=== PATIENT | male | born 1950 | race Caucasian/White ===

== ENCOUNTER 2020-02-22 14:30 | Inpatient (IN) ==
--- NOTE | 2020-02-22 15:36 | XRay Report ---
XR chest 1V portable CLINICAL HISTORY: psych clearance COMPARISON STUDY: No previous studies for comparison. FINDINGS: The cardiac and mediastinal contours are normal. There is no evidence of focal pulmonary co nsolidation. There is no evidence of failure. No pleural effusions are visualized.[The chest has an e mphysematous configuration. IMPRESSION: No active disease in the chest. ACT 112: Negative or not required by law. Electronically signed by: Toby Rodrigues M.D. 02/22/2020 3:34 PM
--- NOTE | 2020-02-22 15:39 | Emergency Department Note ---
Impression & Plan Mood disorder, Suicidal ideation ED Provider Note INFORMANT: Patient ED PROVIDER(S): Magen Wood MD CHIEF COMPLAINT: Mental health evaluation PLAN: Disposition: Admit to 3 S. Condition: Good Outpatient prescription management: none Referral: PCP after discharge. MEDICAL DECISION MAKING: Patient presented for medical clearance due to psychiatric complaints. He had a negative head CT. His ECG showed a normal sinus rhythm. His CBC showed a mild anemia but no leukocytosis. The remainder of his labs were negative. The patient's urinalysis did show marijuana. He was given oral Ativan. Patient rested comfortably. Case management met with the patient. Unfortunately his sp ot at the [facility] was no longer available but the patient was evaluated by [facility] S. here. He was accepted for voluntary admission. Triage Nursing notes reviewed and agree them. Additional history obtained from patient's daughter Vital Signs: reviewed and remarkable for no significant abnormalities Differential diagnosis: Mood disorder, infection, hypoglycemia, electrolyte abnormalities, cardiac sources, intracerebral event, toxicologic, trauma, neurologic, as well as other pathologies. Diagnostics interpreted by me: ECG: Twelve-lead ECG reveals normal sinus rhythm at [address] elevation depression, PACs or PVCs. Normal axis and QRS. Cardiac Monitoring: none Imaging studies: Chest x-ray. Findings: A chest x-ray was performed and revealed no pneumothorax, effusion, infiltrate, pulmonary edema, free air under the diaphragm, or wide mediastinum. Impression: No acute disease. Head CT: A noncontrast CT scan of the head was performed and was negative for tumor, fracture, intracranial hemorrhage, or other acute pathology. HPI: The patient is a 69 year old male who presents to the Emergency Room with complaints of mental health evaluation. This started 40 years ago and is worsening over the last several weeks per family. The patient also notes the f ollowing associated symptoms, depression, anxiety, vague suicidal ideation, occasional headaches, no energy or initiative. Daughter notes that he has been noticeably more irritable, very depressed and not getting along with his . Patient states that he has not gotten along with his for decades. They contacted the [facility] for more help with this and he was directed to the ER for medical clearance. He recently had a jaw infection and was treated with IV antibiotics. He is currently taking oral antibiotics. He does not feel it is getting any worse. His mood was sour before the jaw infection. The patient has found no relieving factors. Pt denies LOC, fevers, chills, diaphoresis, visual changes, neck pain, chest pain, breathing difficulties, nausea, vomiting, abdominal pain, back pain, melena, hematochezia, urinary symptoms, numbness, weakness, lymphadenopathy, rash, or other complaints. ROS: See above HPI for pertinent positives & negatives. A total of 10 systems reviewed and were otherwise negative. PAST MEDICAL HISTORY:See Below , throat cancer PAST SURGICAL HISTORY:See Below, oral surgery FAMILY HISTORY:See Below SOCIAL HISTORY:See Below, former smoker HOME MEDICATIONS:See Below ALLERGIES:See Below VITALS:See Below PHYSICAL EXAMINATION: GENERAL: Awake, alert, depressed-appearing, in no distress HENT: Normocephalic, atraumatic. Oropharynx unremarkable. EYES: Normal conjunctiva. Sclera non-icteric. NECK: Inspection normal. Non-tender. Supple. No nuchal rigidity. FROM. No masses. RESPIRATORY: Clear to auscultation. No wheezes. No rales. Normal respiratory effort. CARDIAC: Normal rate. Normal rhythm. No murmurs. No rubs. Extremities warm and well perfused. Pulses equal. No JVD. GI: Soft, non-distended. No tenderness to palpation. No rebound or guarding. No masses. RECTAL: Deferred. MUSCULOSKELETAL: Atraumatic. Chest examination reveals no tenderness. The back is symmetrical on inspection without obvious abnormality. There is no CVA tenderness to palpation. No joint edema. LOWER EXTREMITIES: Calves are equal size bilaterally and non-tender. No edema. No discoloration. NEURO: Normal sensorium. No sensory or motor deficits noted. Mild tremor present. SKIN: No rash or jaundice noted. PSYCH: Poor eye contact. Depressed mood. Flat affect. Vague SI. No HI. No delusions. Magen Wood MD Past Med/Surg History Social History Smoking Status: Former smoker Preferred Language: Nepali Communication Ability: Effective Miter Sawyer Required: No Beliefs That Will Affect Care: None Feels Safe at Home: Yes Assistive Devices: Glasses Allergies Allergies Allergy/AdvReac Type Severity Reaction Status Date / Time fentanyl Allergy Unresponsiv Verified 02/22/20 14:55 e Home Meds Home Medications Medication Instructions Recorded Confirmed aspirin 81 mg PO DAILY 02/22/20 02/22/20 clindamycin HCl 300 mg PO Q6H 02/22/20 02/22/20 vitamins A,C,[id number] 1 tab PO DAILY 02/22/20 02/22/20 [PreserVision AREDS] Results & Data (ED) Vital Signs Vital Signs - 24 hr 02/22/20 14:31 02/22/20 19:28 Temperature 36.1 C L Temperature Source Temporal Artery Scan Pulse Rate 96 H Pulse Rate [Right Finger] 60 Respiratory Rate 20 19 Respiratory Depth Normal Blood Pressure 179/100 H Blood Pressure [Right Arm] 126/78 Blood Pressure Mean 126 Blood Pressure Mean [Right Arm] 94 Pulse Oximetry 97 96 Oxygen Delivery Method Room Air Sepsis Recent Fever Within 48 Hours No Sepsis New/Unexplained Change in Mental Status N/A Sepsis Action Taken by Nursing No Action Required Laboratory Data Result diagrams: 02/22/20 15:31 02/22/20 15:31 Lab Results 02/22/20 02/22/20 02/22/20 Range/Units 15:31 15:31 15:31 WBC 6.16 (4.8-10.8) K/uL RBC 3.65 L (4.7-6.1) M/uL Hgb 12.0 L (14.0-18.0) g/dL Hct 36.4 L (42-52) % MCV 99.7 (80-100) fL MCH 32.9 (25-34) pg MCHC 33.0 (32-36) g/dL RDW Std Deviation 49.6 H (36.4-46.3) fL RDW Coeff of Debbie 13.8 (11.5-14.5) % Plt Count 247 (130-400) K/uL MPV 9.1 (7.4-10.4) fL Immature Gran % (Auto) 0.2 % Neut % (Auto) 85.4 % Lymph % (Auto) 11.2 % [place] % (Auto) 1.9 % Eos % (Auto) 1.0 % Baso % (Auto) 0.3 % Neut # (Auto) 5.26 (1.4-6.5) K/uL Lymph # (Auto) 0.69 L (1.2-3.4) K/uL [place] # (Auto) 0.12 (0.11-0.59) K/uL Eos # (Auto) 0.06 (0-0.5) K/uL Baso # (Auto) 0.02 (0-0.2) K/uL Immature Gran # (Auto) 0.01 (0.00-0.02) K/uL Sodium 138 (136-145) mmol/L Potassium 4.2 (3.5-5.1) mmol/L Chloride 104 (98-107) mmol/L Carbon Dioxide 27 (21-32) mmol/L Anion Gap 8.0 (3-11) BUN 22 H (7-18) mg/dl Creatinine 1.22 (0.6-1.4) mg/dl Est Cr Clr Drug Dosing 48.9 ml/min Est GFR ( Amer) 68.7 Est GFR (Non-Af Amer) 59.3 BUN/Creatinine Ratio 18.4 (10-20) Glucose 88 (70-99) mg/dl Calcium 9.7 (8.5-10.1) mg/dl Total Bilirubin 0.5 (0.2-1) mg/dl AST 21 (15-37) U/L ALT 18 (12-78) U/L Alkaline Phosphatase 60 (45-117) U/L Total Protein 7.6 (6.4-8.2) gm/dl Albumin 4.1 (3.4-5.0) gm/dl Globulin 3.5 (2.5-4.0) gm/dl Albumin/Globulin Ratio 1.2 (0.9-2) TSH 4.220 (0.300-4.500) uIu/ml Urine Color Urine Appearance (Clear) Urine pH (4.5-7.5) Ur Specific [place] (1.000-1.030) Urine Protein (Negative) Urine Glucose (UA) (Negative) Urine Ketones (Negative) Urine Blood (Negative) Urine Nitrite (Negative) Urine Bilirubin (Negative) Urine Urobilinogen (Negative) Ur Leukocyte Esterase (Negative) Urine WBC (Auto) (0-5) /hpf Urine RBC (Auto) (0-4) /hpf U Hyaline Cast (Auto) (0-5) /lpf U Epithel Cells (Auto) (0-5) /lpf Urine Bacteria (Auto) (Negative) Salicylates < 1.7 L (2.8-20) mg/dl Urine Opiates Screen (Neg) Ur Methadone, Qual (Neg) Acetaminophen < 2 L (10-30) ug/ml Urine Barbiturates (Neg) Ur Phencyclidine (PCP) (Neg) U Amphetamin/Meth Scrn (Neg) MDMA (Ecstasy) Screen (Neg) U Benzodiazepines Scrn (Neg) Ur Cocaine Metabolite (Neg) U Marijuana (THC) Screen (Neg) Ethyl Alcohol mg/dL (0-3) mg/dl COVID-19 Eval Order SARS-CoV-2, RNA, NAAT (NEGATIVE) 02/22/20 02/22/20 02/22/20 Range/Units 15:31 15:40 15:40 WBC (4.8-10.8) K/uL RBC (4.7-6.1) M/uL Hgb (14.0-18.0) g/dL Hct (42-52) % MCV (80-100) fL MCH (25-34) pg MCHC (32-36) g/dL RDW Std Deviation (36.4-46.3) fL RDW Coeff of Debbie (11.5-14.5) % Plt Count (130-400) K/uL MPV (7.4-10.4) fL Immature Gran % (Auto) % Neut % (Auto) % Lymph % (Auto) % [place] % (Auto) % Eos % (Auto) % Baso % (Auto) % Neut # (Auto) (1.4-6.5) K/uL Lymph # (Auto) (1.2-3.4) K/uL [place] # (Auto) (0.11-0.59) K/uL Eos # (Auto) (0-0.5) K/uL Baso # (Auto) (0-0.2) K/uL Immature Gran # (Auto) (0.00-0.02) K/uL Sodium (136-145) mmol/L Potassium (3.5-5.1) mmol/L Chloride (98-107) mmol/L Carbon Dioxide (21-32) mmol/L Anion Gap (3-11) BUN (7-18) mg/dl Creatinine (0.6-1.4) mg/dl Est Cr Clr Drug Dosing ml/min Est GFR ( Amer) Est GFR (Non-Af Amer) BUN/Creatinine Ratio (10-20) Glucose (70-99) mg/dl Calcium (8.5-10.1) mg/dl Total Bilirubin (0.2-1) mg/dl AST (15-37) U/L ALT (12-78) U/L Alkaline Phosphatase (45-117) U/L Total Protein (6.4-8.2) gm/dl Albumin (3.4-5.0) gm/dl Globulin (2.5-4.0) gm/dl Albumin/Globulin Ratio (0.9-2) TSH (0.300-4.500) uIu/ml Urine Color Urine Appearance (Clear) Urine pH (4.5-7.5) Ur Specific [place] (1.000-1.030) Urine Protein (Negative) Urine Glucose (UA) (Negative) Urine Ketones (Negative) Urine Blood (Negative) Urine Nitrite (Negative) Urine Bilirubin (Negative) Urine Urobilinogen (Negative) Ur Leukocyte Esterase (Negative) Urine WBC (Auto) (0-5) /hpf Urine RBC (Auto) (0-4) /hpf U Hyaline Cast (Auto) (0-5) /lpf U Epithel Cells (Auto) (0-5) /lpf Urine Bacteria (Auto) (Negative) Salicylates (2.8-20) mg/dl Urine Opiates Screen (Neg) Ur Methadone, Qual (Neg) Acetaminophen (10-30) ug/ml Urine Barbiturates (Neg) Ur Phencyclidine (PCP) (Neg) U Amphetamin/Meth Scrn (Neg) MDMA (Ecstasy) Screen (Neg) U Benzodiazepines Scrn (Neg) Ur Cocaine Metabolite (Neg) U Marijuana (THC) Screen (Neg) Ethyl Alcohol mg/dL < 3.0 (0-3) mg/dl COVID-19 Eval [email or web address] SARS-CoV-2, RNA, NAAT NEGATIVE (NEGATIVE) 02/22/20 02/22/20 Range/Units 15:50 15:50 WBC (4.8-10.8) K/uL RBC (4.7-6.1) M/uL Hgb (14.0-18.0) g/dL Hct (42-52) % MCV (80-100) fL MCH (25-34) pg MCHC (32-36) g/dL RDW Std Deviation (36.4-46.3) fL RDW Coeff of Debbie (11.5-14.5) % Plt Count (130-400) K/uL MPV (7.4-10.4) fL Immature Gran % (Auto) % Neut % (Auto) % Lymph % (Auto) % [place] % (Auto) % Eos % (Auto) % Baso % (Auto) % Neut # (Auto) (1.4-6.5) K/uL Lymph # (Auto) (1.2-3.4) K/uL [place] # (Auto) (0.11-0.59) K/uL Eos # (Auto) (0-0.5) K/uL Baso # (Auto) (0-0.2) K/uL Immature Gran # (Auto) (0.00-0.02) K/uL Sodium (136-145) mmol/L Potassium (3.5-5.1) mmol/L Chloride (98-107) mmol/L Carbon Dioxide (21-32) mmol/L Anion Gap (3-11) BUN (7-18) mg/dl Creatinine (0.6-1.4) mg/dl Est Cr Clr Drug Dosing ml/min Est GFR ( Amer) Est GFR (Non-Af Amer) BUN/Creatinine Ratio (10-20) Glucose (70-99) mg/dl Calcium (8.5-10.1) mg/dl Total Bilirubin (0.2-1) mg/dl AST (15-37) U/L ALT (12-78) U/L Alkaline Phosphatase (45-117) U/L Total Protein (6.4-8.2) gm/dl Albumin (3.4-5.0) gm/dl Globulin (2.5-4.0) gm/dl Albumin/Globulin Ratio (0.9-2) TSH (0.300-4.500) uIu/ml Urine Color Yellow Urine Appearance Clear (Clear) Urine pH 5.0 (4.5-7.5) Ur Specific [place] 1.020 (1.000-1.030) Urine Protein Trace H (Negative) Urine Glucose (UA) Negative (Negative) Urine Ketones Trace H (Negative) Urine Blood Negative (Negative) Urine Nitrite Negative (Negative) Urine Bilirubin Negative (Negative) Urine Urobilinogen Negative (Negative) Ur Leukocyte Esterase Negative (Negative) Urine WBC (Auto) 1-5 (0-5) /hpf Urine RBC (Auto) 0-4 (0-4) /hpf U Hyaline Cast (Auto) 1-5 (0-5) /lpf U Epithel Cells (Auto) 10-20 H (0-5) /lpf Urine Bacteria (Auto) Negative (Negative) Salicylates (2.8-20) mg/dl Urine Opiates Screen Neg (Neg) Ur Methadone, Qual Neg (Neg) Acetaminophen (10-30) ug/ml Urine Barbiturates Neg (Neg) Ur Phencyclidine (PCP) Neg (Neg) U Amphetamin/Meth Scrn Neg (Neg) MDMA (Ecstasy) Screen Neg (Neg) U Benzodiazepines Scrn Neg (Neg) Ur Cocaine Metabolite Neg (Neg) U Marijuana (THC) Screen Pos H (Neg) Ethyl Alcohol mg/dL (0-3) mg/dl COVID-19 Eval Order SARS-CoV-2, RNA, NAAT (NEGATIVE) Administered Medications Discontinued Medications Lorazepam (Lorazepam 1 Mg Tab) 1 mg SL NOW STA Stop: 02/22/20 16:27 Last Admin: 02/22/20 16:37 Dose: 1 mg Documented by: [id number] Discharge Plan Visit Data Chief Complaint: Mental Health Evaluation Stated Complaint: MENTAL HEALTH EVAL ED Provider: Magen Wood Discharge Problem: Mood disorder, Suicidal ideation Patient Disposition: Admitted As Inpatient Discharge Instructions Interventions: ED Discharge Assessment Last Done: 02/22/20 19:55
[2020-02-22 16:05] LABS: Basophils # (auto) 0.02 K/uL (0-0.2); Basophils % (auto) 0.3 %; Eosinophils # (auto) 0.06 K/uL (0-0.5); Hematocrit (blood only) 36.4 % (42-52); Immature Granulocytes # (auto) 0.01 K/uL (0.00-0.02); Immature Granulocytes % (auto) 0.2 %; Lymphocytes # (auto) 0.69 K/uL (1.2-3.4); Lymphocytes % (auto) 11.2 %; Mean Corpuscular Hemoglobin 32.9 pg (25-34); Mean Corpuscular Volume 99.7 fL (80-100); Mean Platelet Volume 9.1 fL (7.4-10.4); Monocytes # (auto) 0.12 K/uL (0.11-0.59); Monocytes % (auto) 1.9 %; Neutrophils # (auto) 5.26 K/uL (1.4-6.5); Neutrophils % (auto) 85.4 %; Platelet Count 247 K/uL (130-400); RDW Coefficient of Variation 13.8 % (11.5-14.5); RDW Standard Deviation 49.6 fL (36.4-46.3); Red Blood Count 3.65 M/uL (4.7-6.1); White Blood Count 6.16 K/uL (4.8-10.8)
--- NOTE | 2020-02-22 16:10 | CT Scan Report ---
CT head/brain wo con CLINICAL HISTORY: mood change CHANGE IN MENTAL STATUS COMPARISON STUDY: No previous studies for comparison. TECHNIQUE: Axial CT of the brain is performed from the vertex to the skull base. IV contrast was not administered for this examination. A dose lowering technique was utilized adhering to the principles of ALARA. CT DOSE: 537.48 mGy.cm FINDINGS: No intra or extra-axial mass lesions are visualized. There is no CT evidence of acute cortical infarc tion. There is no evidence of midline shift. There is no acute hemorrhage. No calvarial fractures ar e visualized. There are minor white matter hypodensities likely on a small vessel basis. There is no evidence of pathologic ventricular dilatation. There is no evidence of acute sinusitis IMPRESSION: No acute intracranial findings ACT 112: Negative or not required by law. Electronically signed by: Toby Rodrigues M.D. 02/22/2020 4:09 PM
[2020-02-22 16:11] LABS: Appearance Urine Clear (Clear); Bacteria Urine Automated Negative (Negative); Bilirubin Urine Negative (Negative); Blood Urine Negative (Negative); Color Urine Yellow; Glucose Urine UA Negative (Negative); Ketones Urine Trace (Negative); Leukocyte Esterase Urine Negative (Negative); Nitrite Urine Negative (Negative); Protein Urine Trace (Negative); RBC Urine Automated 0-4 /hpf (0-4); Urobilinogen Urine Negative (Negative)
[2020-02-22 16:22] LABS: Albumin Level 4.1 gm/dl (3.4-5.0); BUN Creatinine Ratio 18.4 (10-20); Calcium 9.7 mg/dl (8.5-10.1); Creatinine Clr Calc Pharmacy 48.9 ml/min; Est GFR (African American) 68.7; Est GFR (Non-African American) 59.3; Potassium 4.2 mmol/L (3.5-5.1)
[2020-02-22] MEDS ORDERED: LORazepam 1 MG TAB SL STA (16:26)
[2020-02-22 16:31] LABS: Acetaminophen < 2 ug/ml (10-30); Salicylate < 1.7 mg/dl (2.8-20)
[2020-02-22 16:31] LABS: Amphetamines+Metham, Urine Neg (Neg); Barbiturates, Urine Neg (Neg); Benzodiazepine, Urine Neg (Neg); Cocaine, Urine Neg (Neg); MDMA (Ecstacy), Urine Neg (Neg); Methadone, Urine Neg (Neg); Opiate, Urine Neg (Neg); Phencyclidine, Urine Neg (Neg)
[2020-02-22 16:33] LABS: Albumin Globulin Ratio 1.2 (0.9-2); Bilirubin,Total 0.5 mg/dl (0.2-1); Globulin 3.5 gm/dl (2.5-4.0); Thyroid Stimulating Hormone 4.22 uIu/ml (0.300-4.500); Total Protein 7.6 gm/dl (6.4-8.2)
[2020-02-22] MEDS ORDERED: BISMUTH SUBSALICYLATE LIQD 236 ML PO PRN (20:13)
[2020-02-22] MEDS ORDERED: ALUMINUM/MAGNESIUM SUSP 30 ML UDC PO PRN (20:13)
[2020-02-22] MEDS ORDERED: ACETAMINOPHEN 325 MG TAB PO PRN (20:13)
[2020-02-22] MEDS ORDERED: MAGNESIUM HYDROXIDE SUSP 30 ML UDC PO PRN (20:13)
[2020-02-22] MEDS ORDERED: hydrOXYzine HCl 25 MG TAB PO PRN ×2 (20:13)
[2020-02-22] MEDS ORDERED: SODIUM CHLORIDE 0.65% NA SOLN 45 ML (OCEAN) PRN (20:13)
[2020-02-23] MEDS: CLINDAMYCIN HCL 150 MG CAP PO SCH ×4 (00:11→18:51)
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
[2020-02-23] MEDS: ASPIRIN 81 MG ECTAB PO SCH (08:50)
[2020-02-23] MEDS ORDERED: MULTIVITAMIN CHEWABLE TAB PO SCH (09:00)
--- NOTE | 2020-02-23 09:38 | Electrocardiogram Report ---
Test Reason : Blood Pressure : / mmHG Vent. Rate : 080 BPM Atrial Rate : 080 BPM P-R Int : 160 ms QRS Dur : 086 ms QT Int : 384 ms P-R-T Axes : 076 073 072 degrees QTc Int : 442 ms Poor data quality, interpretation may be adversely affected Normal sinus rhythm Normal ECG No previous ECGs available Confirmed by Bennett Amin ([id number]) on 02/23/2020 9:38:07 AM Referred By: REFERRED SELF Confirmed By:Bennett Amin
[2020-02-23] MEDS ORDERED: IBUPROFEN 600 MG TAB PO PRN (09:46)
[2020-02-23] MEDS ORDERED: PRESERVISION AREDS2 EXT SCH (10:30)
[2020-02-24] MEDS ORDERED: CEROVITE ADV FORMULA TAB PO SCH (09:00)
[2020-02-24] MEDS: ASPIRIN 81 MG ECTAB PO SCH (09:00)
[2020-02-24] MEDS: PRESERVISION AREDS2 PO SCH (09:00)
--- NOTE | 2020-02-24 09:40 | Psychiatric Progress Note ---
Date of Service February 24, 2020 Impression / Recommendations (1) Suicidal ideation: 02/22 -continue inpatient hospitalization, suicide checks for safety. Encourage group attendance and participation, work on healthy coping skills and discharge safety plan. -Patient is refusing to allow us to contact his for collateral information, stating he does not want her involved in treatment and does not want to go back and live with her. We will explore other supports/options for family meeting and safety planning, possibly his daughter Keerthi who brought him to the ER. 02/23 - Pt denies SI - Will be encouraged to work on his safety plan - Focus at this time is on appropriate medications and aftercare to promote stability of mood (2) Bipolar 1 disorder: 02/22 -patient reports a history of manic episodes lasting 2 weeks, previous treatment with lithium and Depakote which she is refusing to resume, currently depressed with significant irritability. Reviewed treatment options, including a trial of lamotrigine or an atypical antipsychotic. He is very concerned about side effects, so reviewed lamotrigine in detail including risks, benefits, and side effects, including the need to titrate slowly following the standard protocol and the risk of Petersen-Wesley syndrome. At this time, he is not willing to start a medication, but is willing to about it, so will continue to provide information and answer questions about mood stabilizers. Advised him that medications are only 1 part of treatment, but that he may need them, given the severity of mood symptoms, in order to get out of his depression, stabilize mood, and be able to use other, nonpharmacologic methods of treatment. -Continue to provide psychoeducation about his diagnosis and the treatment recommendations. Refer for outpatient mental health services. -Education provided on the risks of cannabis use and recommendations for abstinence; patient states he has already decided to stop smoking pot due to his religion believes, and has not smoked in a week or so. Attempt to identify healthier coping strategies. 02/23 - After review of several mood stabilization medication options and patient's request to review with his daughter - the patient is ultimately willing to retry lithium for his bipolar disorder. Pt believes he may have been prescribed 600mg BID or TID in the past (though admittedly is uncertain about the accuracy of this report). He does recall GI upset in the past, but agreed to a less rapid titration to effective dosing. Will start at 300mg tonight and titrate as tolerated. Risks, benefits, and potential side effects were reviewed with both the patient and his daughter. Pt did verbalize understanding of need for lab monitoring to prevent toxicity. - Pt will require lithium trough to be drawn 5 days after her reaches stable dosing, lab not yet ordered - Pt did agree to consider lamotrigine if lithium was intolerable or ineffective. - He continues to deny SI, but would benefit from continued inpatient treatment to start an appropriate medication regimen and ensure he has appropriate outpatient services at discharge. - Family meeting with daughter, Keerthi, was held today Risk Factors Assessment Male: Yes : Yes Do You Have Access To A Gun?: No Health Problems: Yes Mental Health Diagnoses: Yes Substance Use Disorders: Yes Previous Attempt: Yes Previous Psychiatric Hospitalization: Yes Hopelessness: No Smoker: No Protective Factors Assessment [employer]aritan Beliefs: Yes : Yes Responsible for Young Children: No Employed: No Supportive Family: Yes Interval History Identifying Information GEOVANY MARIE is a 69-year-old M who currently lives in [facility]) with his , has a history of depression, and was admitted on 02/22/20 19:53 on a 201 voluntary commitment for worsening mood and suicidal ideation. Chief Complaint "Do you have my discharge papers prepared?" Review of Systems Notes Constitutional: denied Cardiovascular: denied Respiratory: denied Gastrointestinal: denied Neurological: denied Psychiatric: denies symptoms other than stated above Total of at least 10 systems reviewed, pertinent positives as above and in HPI. Sleep Information Total Hours of Sleep: 3.0 Sleep Comments: Patient said that he sleeps "three to four 15 min naps and that is all I need". Meal Information Percent Meal Consumed - Breakfast: 0 Percent Meal Consumed - Lunch: 0 Percent Meal Consumed - Dinner: 10 Subjective Subjective Patient was see & assessed and interval progress reviewed with nursing and social work. Staff report the patient continues to be rather animated, irritable, and resistant to engaging in treatment. He is preoccupied with discussing his religion beliefs, but also spends a great deal of time verbalizing complaints about his marriage and other home-life stressors. This morning the patient was reportedly very irritable when simply asked by staff if he would like to fill out his menu for the remainder of the day. The patient was seen today to assess progress since admission. He was initially rather short, demanding to know if his discharge papers were printed. This provider was very clear with informing the patient that discharge is not being considered for today. He states "oh, I'm leaving. One way or another I'll get out of here - even if I leave with just my glasses." This provider inquired what the patient felt has improved since his admission, and he admitted that very little had changed. He was able to provide honest reports that his primary reason for requesting discharge is related to shoulder discomfort - patient admitting that he has been using prescriptions for pain medications when his shoulder pain acts up. This provider informed patient of tasks necessary to work toward discharge planning. He was encouraged to consider a family meeting and also was asked to consider medication options that had been discussed with him previously. He again requested sertraline, and was provided with explanation as to why monotherapy with an antidepressant would not be started without having a mood stabilization agent on board. Pt continues to request only medications without side effects or need for lab monitoring. Lamotrigine was again suggested, with additional conversation regarding risk of SJS but also how prescribing practices work to reduce this risk. Pt request a print out on the medication which was provided to him. He repeatedly suggested that "you can add the prescription to my discharge papers today and I will see if I want to take it when I leave." This provider explained clear boundaries, that he would not be receiving any discharge prescriptions for medications he refused to take during his admission. Before leaving the patient's room, medication recommendations and justification of these was explained and patient information on lamotrigine was provided. Pt was encouraged to seek out staff if he should desire to initiate a mood stabilization agent. He denied suicidality or other concerns he wished to discuss. This provider received reports from staff that patient continues to be concerned about the risk of SJS and is now considering a re-trial of lithium. He did agree to a family meeting with his daughter, Keerthi. This provider was asked to join the meeting to discuss medication recommendations. Pt was very polite and articulate during the meeting and did not openly display any of the irritability observed earlier this morning. The medication options were reviewed with the patient and his daughter, with opportunity for questions to be answered. Daughter did verbalize concern about valproic acid due to patient's history of alcohol abuse and concern for the health of his liver. The patient openly advocated for lithium and daughter supported patient's decision. Pt agreed to starting the medication this evening and titrating to therapeutic dosing as tolerated. Due to concern for GI symptoms in the past, patient did indicate desire for gradual medication adjustments. The patient has now decided that he feels inpatient treatment would be beneficial and he is no longer requesting discharge today. This provider did exit the meeting, and the group continued to discuss options for aftercare. Pt and daughter were encouraged to pass along any additional questions or concerns. Physical Exam Psychiatric Orientation: alert and oriented x 3 Apperance: appropriately dressed and appropriately groomed Eye Contact: + fair eye contact Motor Behavior: no abnormal motor movements (observed while laying in bed initially ) Speech: normal rate/rhythm/volume of speech (initially irritable tone - tone was polite and cooperative during meeting) Affect: + labile affect affect was initially irritable and angry when meeting independently with the patient. During meeting with daughter, patient was polite, appearing subdued but not overtly depressed Thought Process: goal directed thought process and clear/coherent thought process Thought Content: reality based without delusions; no hopelessness and no worthlessness Suicidal Thoughts: denies suicidal thoughts and denies suicidal intent Homicidal Thoughts: denies homicidal thoughts Hallucinations: no auditory hallucinations and no visual hallucinations Cognition: attention grossly intact and language grossly intact Estimated Intelligence: consistent with education level Insight: + fair insight Judgement: + fair judgement Vital Signs (Past 24 Hours) Last Vital Signs Temp 36.6 C 02/24/20 06:42 Pulse 66 02/24/20 06:43 Resp 16 02/24/20 06:42 BP 90/57 L 02/24/20 06:43 Pulse Ox 96 02/22/20 20:22 Results & Data ([facility]) Current Inpatient Medications Current Inpatient Medications: Current Inpatient Medications Acetaminophen (Acetaminophen 325 Mg Tab) 650 mg PO Q4H PRN PRN Reason: Headache or Minor Fever Stop: 03/23/20 20:12 Al Hydrox/Mg Hydrox/Simethicone (Aluminum/Magnesium Susp 30 Ml Udc) 30 ml PO Q4H PRN PRN Reason: GI Upset Stop: 03/23/20 20:12 Aspirin (Aspirin 81 Mg Ectab) 81 mg PO QAM SANDEEP Stop: 03/24/20 08:59 Last Admin: 02/24/20 09:00 Dose: 81 mg Documented by: Bismuth Subsalicylate (Bismuth Subsalicylate Liqd 236 Ml) 15 ml PO PRN PRN PRN Reason: Loose Stool Stop: 03/23/20 20:12 Hydroxyzine HCl (Hydroxyzine Hcl 25 Mg Tab) 50 mg PO HSZ PRN PRN Reason: Insomnia Stop: 03/23/20 20:12 Hydroxyzine HCl (Hydroxyzine Hcl 25 Mg Tab) 25 mg PO Q4H PRN PRN Reason: Anxiety Stop: 03/23/20 20:12 Ibuprofen (Ibuprofen 600 Mg Tab) 600 mg PO Q8H PRN PRN Reason: Pain Stop: 03/24/20 09:45 Last Admin: 02/23/20 10:23 Dose: 600 mg Documented by: Magnesium Hydroxide (Magnesium Hydroxide Susp 30 Ml Udc) 30 ml PO DAILY PRN PRN Reason: Constipation Stop: 03/23/20 20:12 Preservision Areds2: Non-Formulary Patient's Own Med 1 ea PO DAILY SANDEEP Stop: 03/25/20 08:59 Last Admin: 02/24/20 09:00 Dose: 1 ea Documented by: Sodium Chloride (Sodium Chloride 0.65% Na Soln 45 Ml ([place])) 1 - 2 sprays NA PRN PRN PRN Reason: Nasal Dryness/Congestion Stop: 03/23/20 20:12 Mental Health & Subst Abuse Tx Therapist Name of Therapist: none Post Discharge Appointments Primary Care Physician Name Of Family Doctor: Elisa Ng [facility]
[2020-02-24] MEDS ORDERED: LITHIUM CARBONATE 300 MG TAB PO SCH (22:00)
[2020-02-25 00:26] LABS: Marijuana Quant, GCMS Urine 114 ng/mL (<5)
[2020-02-25] MEDS: PRESERVISION AREDS2 PO SCH (08:42)
[2020-02-25] MEDS: ASPIRIN 81 MG ECTAB PO SCH (08:43)
--- NOTE | 2020-02-25 09:08 | Psychiatric Progress Note ---
Date of Service February 25, 2020 Impression / Recommendations (1) Suicidal ideation: 02/22 -continue inpatient hospitalization, suicide checks for safety. Encourage group attendance and participation, work on healthy coping skills and discharge safety plan. -Patient is refusing to allow us to contact his for collateral information, stating he does not want her involved in treatment and does not want to go back and live with her. We will explore other supports/options for family meeting and safety planning, possibly his daughter Keerthi who brought him to the ER. 02/23 - 02/24 - Pt denies SI - Will be encouraged to work on his safety plan - Focus at this time is on appropriate medications and aftercare to promote stability of mood (2) Bipolar 1 disorder: 02/22 -patient reports a history of manic episodes lasting 2 weeks, previous treatment with lithium and Depakote which she is refusing to resume, currently depressed with significant irritability. Reviewed treatment options, including a trial of lamotrigine or an atypical antipsychotic. He is very concerned about side effects, so reviewed lamotrigine in detail including risks, benefits, and side effects, including the need to titrate slowly following the standard protocol and the risk of Petersen-Wesley syndrome. At this time, he is not willing to start a medication, but is willing to about it, so will continue to provide information and answer questions about mood stabilizers. Advised him that medications are only 1 part of treatment, but that he may need them, given the severity of mood symptoms, in order to get out of his depression, stabilize mood, and be able to use other, nonpharmacologic methods of treatment. -Continue to provide psychoeducation about his diagnosis and the treatment recommendations. Refer for outpatient mental health services. -Education provided on the risks of cannabis use and recommendations for abstinence; patient states he has already decided to stop smoking pot due to his presybeterian believes, and has not smoked in a week or so. Attempt to identify healthier coping strategies. 02/23 - After review of several mood stabilization medication options and patient's request to review with his daughter - the patient is ultimately willing to retry lithium for his bipolar disorder. Pt believes he may have been prescribed 600mg BID or TID in the past (though admittedly is uncertain about the accuracy of this report). He does recall GI upset in the past, but agreed to a less rapid titration to effective dosing. Will start at 300mg tonight and titrate as tolerated. Risks, benefits, and potential side effects were reviewed with both the patient and his daughter. Pt did verbalize understanding of need for lab monitoring to prevent toxicity. - Pt will require lithium trough to be drawn 5 days after her reaches stable dosing, lab not yet ordered - Pt did agree to consider lamotrigine if lithium was intolerable or ineffective. - He continues to deny SI, but would benefit from continued inpatient treatment to start an appropriate medication regimen and ensure he has appropriate outpatient services at discharge. - Family meeting with daughter, Keerthi, was held today 02/24 - Titrating lithium to 600mg qHS tonight. Will order lithium level to be drawn the morning of 03/01, though additional adjustments could be considered within that timeline. - Pt does request to discuss options to improve sleep and was agreeable with as needed use of melatonin. Pt was also reminded of order for hydroxyzine as well. - Pt perceives his meeting with his daughter was positive yesterday, he also states he had attempted to call his last evening and seems more amenable to working on their relationship. - Aftercare services will still need arranged Risk Factors Assessment Male: Yes : Yes Do You Have Access To A Gun?: No Health Problems: Yes Mental Health Diagnoses: Yes Substance Use Disorders: Yes Previous Attempt: Yes Previous Psychiatric Hospitalization: Yes Hopelessness: No Smoker: No Protective Factors Assessment Mandaeism Beliefs: Yes : Yes Responsible for Young Children: No Employed: No Supportive Family: Yes Interval History Identifying Information GEOVANY MARIE is a 69-year-old M who currently lives in [facility]) with his , has a history of depression, and was admitted on 02/22/20 19:53 on a 201 voluntary commitment for worsening mood and suicidal ideation. Chief Complaint "Um, I do feel I'm doing better." Review of Systems Notes Constitutional: reports poor sleep last evening Cardiovascular: denied Respiratory: denied Gastrointestinal: denied Neurological: denied Psychiatric: denies symptoms other than stated above Total of at least 10 systems reviewed, pertinent positives as above and in HPI. Sleep Information Total Hours of Sleep: 1.25 Sleep Comments: Patient said that he sleeps "three to four 15 min naps and that is all I need". Meal Information Percent Meal Consumed - Breakfast: 0 Percent Meal Consumed - Lunch: 100 Percent Meal Consumed - Dinner: 100 Subjective Subjective Patient was seen & assessed and interval progress reviewed with treatment team. Staff report the patient has demonstrated much less irritability since yesterday afternoon. He has started attending group therapy and even expressed to staff that he would like to explore marriage counseling. Pt rated his mood a 6/10 last evening. According to staff, patient also appeared to be less religiously preoccupied. Pt was seen today to assess progress since admission. The patient reports "I do feel I'm doing better." He states he was able to attend some groups last evening, and that a particular group on "goals" was helpful for him. He reports he has a goal of continuing with his medication regimen, but also to begin working on communication. We discussed effective communication also includes a significant component of listening, which he admits he struggles with. Pt does seem much more motivated to work on his marriage - suggesting to this provider several ways that he could express his emotions to his ("just spend more time with her", "buy her some conner when I'm at the store", "even just explaining that I'm committed to resolving issues, even when I need to step away for some space.") Pt states he is not sure of his 's thoughts on the matter, but he did attempt to call her last evening. Pt states that he daughter offered for him to stay in the house she is trying to sell if he does need some space to himself. He states he would also feel comfortable using the services at [facility] in [place] if needed - "that way I'm still close to my doctors appointments and not driving off to [place] when I'm upset." Pt continues to deny SI, and has been more agreeable with medication recommendations. He denied side effects to initial dose of lithium last evening and is agreeable to increasing his dose to 600mg tonight. Pt is admittedly concerned about potential side effects and is hoping to continue to focus on therapeutic interventions until his lithium level can be checked. He is also aware that aftercare services will still need to be arranged. Pt denied other needs at this time. Physical Exam Psychiatric Orientation: alert, oriented x 3 and cooperative Apperance: appropriately dressed, appropriately groomed and appeared stated age Eye Contact: good eye contact Motor Behavior: steady gait and station and no abnormal motor movements Speech: normal rate/rhythm/volume of speech Affect: + labile affect (though mildly more controlled than yesterday) Pt continues to vacillate between appearing tearful, elated, and depressed. He does appear far less irritable/angry. Mood: no depressed mood ("feeling better") and no irritable mood Thought Process: goal directed thought process and clear/coherent thought process Thought Content: reality based without delusions; no hopelessness and no worthlessness Suicidal Thoughts: denies suicidal thoughts and denies suicidal intent Homicidal Thoughts: denies homicidal thoughts Hallucinations: no auditory hallucinations and no visual hallucinations Cognition: attention grossly intact and language grossly intact Estimated Intelligence: consistent with education level Insight: + fair insight Judgement: + fair judgement Vital Signs (Past 24 Hours) Last Vital Signs Temp 36.5 C 02/25/20 06:44 Pulse 57 L 02/25/20 06:45 Resp 16 02/25/20 06:44 BP 123/74 02/25/20 06:45 Pulse Ox 96 02/22/20 20:22 Results & Data ([facility]) Laboratory Results Laboratory Results - last 24 hr 02/22/20 15:50 U Marijuana THC Carboxy 114 H Drug Screen Comment SEE NOTE Current Inpatient Medications Current Inpatient Medications: Current Inpatient Medications Acetaminophen (Acetaminophen 325 Mg Tab) 650 mg PO Q4H PRN PRN Reason: Headache or Minor Fever Stop: 03/23/20 20:12 Al Hydrox/Mg Hydrox/Simethicone (Aluminum/Magnesium Susp 30 Ml Udc) 30 ml PO Q4H PRN PRN Reason: GI Upset Stop: 03/23/20 20:12 Aspirin (Aspirin 81 Mg Ectab) 81 mg PO QAM SANDEEP Stop: 03/24/20 08:59 Last Admin: 02/25/20 08:43 Dose: 81 mg Documented by: Bismuth Subsalicylate (Bismuth Subsalicylate Liqd 236 Ml) 15 ml PO PRN PRN PRN Reason: Loose Stool Stop: 03/23/20 20:12 Hydroxyzine HCl (Hydroxyzine Hcl 25 Mg Tab) 50 mg PO HSZ PRN PRN Reason: Insomnia Stop: 03/23/20 20:12 Hydroxyzine HCl (Hydroxyzine Hcl 25 Mg Tab) 25 mg PO Q4H PRN PRN Reason: Anxiety Stop: 03/23/20 20:12 Ibuprofen (Ibuprofen 600 Mg Tab) 600 mg PO Q8H PRN PRN Reason: Pain Stop: 03/24/20 09:45 Last Admin: 02/23/20 10:23 Dose: 600 mg Documented by: [place] Carbonate ([place] Carbonate 300 Mg Tab) 300 mg PO HS SANDEEP Stop: 03/25/20 21:59 Last Admin: 02/24/20 20:43 Dose: 300 mg Documented by: Magnesium Hydroxide (Magnesium Hydroxide Susp 30 Ml Udc) 30 ml PO DAILY PRN PRN Reason: Constipation Stop: 03/23/20 20:12 Preservision Areds2: Non-Formulary Patient's Own Med 1 ea PO DAILY SANDEEP Stop: 03/25/20 08:59 Last Admin: 02/25/20 08:42 Dose: 1 ea Documented by: Sodium Chloride (Sodium Chloride 0.65% Na Soln 45 Ml ([place])) 1 - 2 sprays NA PRN PRN PRN Reason: Nasal Dryness/Congestion Stop: 03/23/20 20:12 Mental Health & Subst Abuse Tx Therapist Name of Therapist: none Post Discharge Appointments [facility]
[2020-02-25] MEDS: LITHIUM CARBONATE 300 MG TAB PO SCH (22:22)
[2020-02-26] MEDS: PRESERVISION AREDS2 PO SCH (09:02)
[2020-02-26] MEDS: ASPIRIN 81 MG ECTAB PO SCH (09:02)
--- NOTE | 2020-02-26 09:52 | Psychiatric Progress Note ---
Date of Service February 26, 2020 Impression / Recommendations (1) Suicidal ideation: 02/22 -continue inpatient hospitalization, suicide checks for safety. Encourage group attendance and participation, work on healthy coping skills and discharge safety plan. -Patient is refusing to allow us to contact his for collateral information, stating he does not want her involved in treatment and does not want to go back and live with her. We will explore other supports/options for family meeting and safety planning, possibly his daughter Keerthi who brought him to the ER. 02/23 - 02/24 - Pt denies SI - Will be encouraged to work on his safety plan - Focus at this time is on appropriate medications and aftercare to promote stability of mood 02/25 - Continues to deny SI, but is now reporting unwillingness to participate in treatment - Continue to encourage participation in group programming (2) Bipolar 1 disorder: 02/22 -patient reports a history of manic episodes lasting 2 weeks, previous treatment with lithium and Depakote which she is refusing to resume, currently depressed with significant irritability. Reviewed treatment options, including a trial of lamotrigine or an atypical antipsychotic. He is very concerned about side effects, so reviewed lamotrigine in detail including risks, benefits, and side effects, including the need to titrate slowly following the standard protocol and the risk of Petersen-Wesley syndrome. At this time, he is not willing to start a medication, but is willing to about it, so will continue to provide information and answer questions about mood stabilizers. Advised him that medications are only 1 part of treatment, but that he may need them, given the severity of mood symptoms, in order to get out of his depression, stabilize mood, and be able to use other, nonpharmacologic methods of treatment. -Continue to provide psychoeducation about his diagnosis and the treatment recommendations. Refer for outpatient mental health services. -Education provided on the risks of cannabis use and recommendations for abstinence; patient states he has already decided to stop smoking pot due to his bahai believes, and has not smoked in a week or so. Attempt to identify healthier coping strategies. 02/23 - After review of several mood stabilization medication options and patient's request to review with his daughter - the patient is ultimately willing to retry lithium for his bipolar disorder. Pt believes he may have been prescribed 600mg BID or TID in the past (though admittedly is uncertain about the accuracy of this report). He does recall GI upset in the past, but agreed to a less rapid titration to effective dosing. Will start at 300mg tonight and titrate as tolerated. Risks, benefits, and potential side effects were reviewed with both the patient and his daughter. Pt did verbalize understanding of need for lab monitoring to prevent toxicity. - Pt will require lithium trough to be drawn 5 days after her reaches stable dosing, lab not yet ordered - Pt did agree to consider lamotrigine if lithium was intolerable or ineffective. - He continues to deny SI, but would benefit from continued inpatient treatment to start an appropriate medication regimen and ensure he has appropriate outpatient services at discharge. - Family meeting with daughter, Keerthi, was held today 02/24 - Titrating lithium to 600mg qHS tonight. Will order lithium level to be drawn the morning of 03/01, though additional adjustments could be considered within that timeline. - Pt does request to discuss options to improve sleep and was agreeable with as needed use of melatonin. Pt was also reminded of order for hydroxyzine as well. - Pt perceives his meeting with his daughter was positive yesterday, he also states he had attempted to call his last evening and seems more amenable to working on their relationship. - Aftercare services will still need arranged 02/25 - Pt is once again more irritable and declining medications and to participate in treatment. He refused his dose of lithium 600mg last evening - will continue to recommend the medication and have it available in hopes the patient again becomes agreeable; however, he was informed it is unlikely he will be prescribed medications on discharge that he has not been taking during his admission. - Pt was offered a 72-hour notice due to his expressed frustrations; however, he declined stating "I will not be leaving AMA if that's what you're asking." - Will continue to encourage participation in group programming Risk Factors Assessment Male: Yes : Yes Do You Have Access To A Gun?: No Health Problems: Yes Mental Health Diagnoses: Yes Substance Use Disorders: Yes Previous Attempt: Yes Previous Psychiatric Hospitalization: Yes Hopelessness: No Smoker: No Protective Factors Assessment Bahai Beliefs: Yes : Yes Responsible for Young Children: No Employed: No Supportive Family: Yes Interval History Identifying Information GEOVANY MARIE is a 69-year-old M who currently lives in [facility]) with his , has a history of depression, and was admitted on 02/22/20 19:53 on a 201 voluntary commitment for worsening mood and suicidal ideation. Chief Complaint "I've decided I'm done with this treatment. Last night was the last straw." Review of Systems Notes Constitutional: denied Cardiovascular: denied Respiratory: denied Gastrointestinal: denied Neurological: denied Psychiatric: denies symptoms other than stated above Total of at least 10 systems reviewed, pertinent positives as above and in HPI. Sleep Information Total Hours of Sleep: 6.5 Sleep Comments: Patient said that he sleeps "three to four 15 min naps and that is all I need". Meal Information Percent Meal Consumed - Breakfast: 100 Percent Meal Consumed - Lunch: 100 Percent Meal Consumed - Dinner: 100 Subjective Subjective Patient was seen & assessed and interval progress reviewed with nursing and social work. Staff report the patient had been cooperative in the morning yesterday, but rather abruptly began demonstrating increased irritability and unwillingness to attend groups. Pt also reportedly refused his lithium dosing last evening. Pt was seen today to assess progress since admission. The patient was superficially pleasant, but clearly demonstrating frustration. Pt stated he became upset with staff last evening, and reports he can no longer trust this unit or its treatment. This provider asked additional questions to gather the source of the patient's frustration. Pt appears to be upset that confusing information had been passed along related to phone calls. He states his daughter was informed he was in group "and I was not." Pt was informed that generally phone calls are limited during group times in order to promote attendance. Pt continued to ruminate on this isolated situation and states it was "the last straw." He reports he will no longer be taking medications or participating in groups and states "you will find me right here [in bed] until my discharge paper work is ready." Pt was informed that we were not anticipating discharge, especially if he is no longer participating in treatment, but he was offered his 72-hour notice. Pt declined to sign it, stating "I plan to be leaving in 72-hours anyway, so what's the point? I will not be leaving AMA if that's what you're asking." This provider expressed that she was optimistic that we could rebuild rapport and that the patient may again feel interested in engaging in treatment, to which he stated "you're a very hopeful person." Pt is still accepting of aftercare referrals, but at this moment is declining medications and groups. He was informed the lithium would still be offered to him, but that it is unlikely he will be prescribed medications on discharge that he has been unwilling to take on the unit. Pt states "If I get messed up again shortly after I leave and I have to come back to a rehab like this, then I guess that's just what I'll have to do." Pt denied other needs at this time and requested to be left alone. Physical Exam Psychiatric Orientation: alert and oriented x 3 Apperance: appropriately dressed, appropriately groomed and appeared stated age Eye Contact: good eye contact (intently staring) Motor Behavior: steady gait and station and no abnormal motor movements Speech: normal rate/rhythm/volume of speech (irritable, angry tone) Affect: + angry affect Mood: + angry mood Thought Process: + perseveration Thought Content: + cognitive distortions Suicidal Thoughts: denies suicidal thoughts Homicidal Thoughts: denies homicidal thoughts Hallucinations: no auditory hallucinations and no visual hallucinations Cognition: attention grossly intact and language grossly intact Estimated Intelligence: consistent with education level Insight: + poor insight Judgement: + poor judgement Vital Signs (Past 24 Hours) Last Vital Signs Temp 36.5 C 02/26/20 06:28 Pulse 76 02/26/20 06:28 Resp 17 02/26/20 06:28 BP 103/62 02/26/20 06:28 Pulse Ox 96 02/22/20 20:22 Results & Data ([facility]) Current Inpatient Medications Current Inpatient Medications: Current Inpatient Medications Acetaminophen (Acetaminophen 325 Mg Tab) 650 mg PO Q4H PRN PRN Reason: Headache or Minor Fever Stop: 03/23/20 20:12 Al Hydrox/Mg Hydrox/Simethicone (Aluminum/Magnesium Susp 30 Ml Udc) 30 ml PO Q4H PRN PRN Reason: GI Upset Stop: 03/23/20 20:12 Aspirin (Aspirin 81 Mg Ectab) 81 mg PO QAM SANDEEP Stop: 03/24/20 08:59 Last Admin: 02/26/20 09:02 Dose: 81 mg Documented by: Bismuth Subsalicylate (Bismuth Subsalicylate Liqd 236 Ml) 15 ml PO PRN PRN PRN Reason: Loose Stool Stop: 03/23/20 20:12 Hydroxyzine HCl (Hydroxyzine Hcl 25 Mg Tab) 50 mg PO HSZ PRN PRN Reason: Insomnia Stop: 03/23/20 20:12 Hydroxyzine HCl (Hydroxyzine Hcl 25 Mg Tab) 25 mg PO Q4H PRN PRN Reason: Anxiety Stop: 03/23/20 20:12 Ibuprofen (Ibuprofen 600 Mg Tab) 600 mg PO Q8H PRN PRN Reason: Pain Stop: 03/24/20 09:45 Last Admin: 02/23/20 10:23 Dose: 600 mg Documented by: Eddystone Carbonate (Eddystone Carbonate 300 Mg Tab) 600 mg PO HS SANDEEP Stop: 03/26/20 21:59 Last Admin: 02/25/20 22:22 Dose: Not Given Documented by: Magnesium Hydroxide (Magnesium Hydroxide Susp 30 Ml Udc) 30 ml PO DAILY PRN PRN Reason: Constipation Stop: 03/23/20 20:12 Melatonin (Melatonin 3 Mg Tab) 3 mg PO HS PRN PRN Reason: Sleep Stop: 03/26/20 09:41 Preservision Areds2: Non-Formulary Patient's Own Med 1 ea PO DAILY SANDEEP Stop: 03/25/20 08:59 Last Admin: 02/26/20 09:02 Dose: 1 ea Documented by: Sodium Chloride (Sodium Chloride 0.65% Na Soln 45 Ml ([place])) 1 - 2 sprays NA PRN PRN PRN Reason: Nasal Dryness/Congestion Stop: 03/23/20 20:12 Mental Health & Subst Abuse Tx Therapist Name of Therapist: none Post Discharge Appointments Primary Care Physician Name Of Family Doctor: Elisa Díaz Primary Care Provider Appointment Comment: Kirill Grijalva Contact Information Discharge Discharge Address: [address] [place] [address]
[2020-02-26] MEDS: LITHIUM CARBONATE 300 MG TAB PO SCH (21:05)
[2020-02-27] MEDS: MELATONIN 3 MG TAB PO PRN ×2 (00:18→20:26)
[2020-02-27] MEDS: ASPIRIN 81 MG ECTAB PO SCH (08:28)
[2020-02-27] MEDS: PRESERVISION AREDS2 PO SCH (08:28)
--- NOTE | 2020-02-27 09:37 | Psychiatric Progress Note ---
Date of Service February 27, 2020 Impression / Recommendations Impression 69-year-old male admitted voluntarily for inpatient psychiatric treatment on 02/22/2020 after presenting to the ED with worsening mood and SI with unwillingness to clearly divulge a plan, stating it was "a secret" - then disclosing thoughts to use "a needle or a gun." The patient provides a rather convincing history of bipolar I disorder and a history of treatment with mood stabilizing agents. Pt's mood fluctuations have continued on the unit. He initially presented as very irritable and defiant, unwilling to consider medication recommendations and engage in treatment. He has had intermittent episodes of more cooperative behavior, which allowed medication options to be discussed. Although recommendation was provided for trial of lamotrigine based on patient's concern for possible medication side effects and being uninterested in regular lab work, the patient somewhat surprisingly requested to resume lithium. After the first dose, patient again became angry and defiant stating he did not feel he could be discharged, but also refusing to take medications or engage in treatment. Raymore has continued to be offered to the patient, as it is felt he would benefit from a mood stabilization agent. Pt's rapid and significant mood fluctuations present concern for commitment to continued treatment or appropriate follow-up. Pt is a spiritual man at baseline, but he continues to demonstrate episodes of amish preoccupation as well. His behavior suggests he would not be able to tolerate the stress of community re- entry and he remains at acute risk of harm to self or others if discharged pr ematurely. (1) Suicidal ideation: 02/22 -continue inpatient hospitalization, suicide checks for safety. Encourage group attendance and participation, work on healthy coping skills and discharge safety plan. -Patient is refusing to allow us to contact his for collateral information, stating he does not want her involved in treatment and does not want to go back and live with her. We will explore other supports/options for family meeting and safety planning, possibly his daughter Keerthi who brought him to the ER. 02/23 - 02/24 - Pt denies SI - Will be encouraged to work on his safety plan - Focus at this time is on appropriate medications and aftercare to promote stability of mood 02/25 - Continues to deny SI, but is now reporting unwillingness to participate in treatment - Continue to encourage participation in group programming 02/26 - Denying SI presently; however, his significant mood fluctuations and lack of clear commitment to mood stabilizing medication regimen continue to place patient at acute risk of harm to self if discharged prematurely (2) Bipolar 1 disorder: 02/22 -patient reports a history of manic episodes lasting 2 weeks, previous treatment with lithium and Depakote which she is refusing to resume, currently depressed with significant irritability. Reviewed treatment options, including a trial of lamotrigine or an atypical antipsychotic. He is very concerned about side effects, so reviewed lamotrigine in detail including risks, benefits, and side effects, including the need to titrate slowly following the standard protocol and the risk of Petersen-Wesley syndrome. At this time, he is not willing to start a medication, but is willing to about it, so will continue to provide information and answer questions about mood stabilizers. Advised him that medications are only 1 part of treatment, but that he may need them, given the severity of mood symptoms, in order to get out of his depression, stabilize mood, and be able to use other, nonpharmacologic methods of treatment. -Continue to provide psychoeducation about his diagnosis and the treatment recommendations. Refer for outpatient mental health services. -Education provided on the risks of cannabis use and recommendations for abstinence; patient states he has already decided to stop smoking pot due to his amish believes, and has not smoked in a week or so. Attempt to identify healthier coping strategies. 02/23 - After review of several mood stabilization medication options and patient's request to review with his daughter - the patient is ultimately willing to retry lithium for his bipolar disorder. Pt believes he may have been prescribed 600mg BID or TID in the past (though admittedly is uncertain about the accuracy of this report). He does recall GI upset in the past, but agreed to a less rapid titration to effective dosing. Will start at 300mg tonight and titrate as tolerated. Risks, benefits, and potential side effects were reviewed with both the patient and his daughter. Pt did verbalize understanding of need for lab monitoring to prevent toxicity. - Pt will require lithium trough to be drawn 5 days after her reaches stable dosing, lab not yet ordered - Pt did agree to consider lamotrigine if lithium was intolerable or ineffective. - He continues to deny SI, but would benefit from continued inpatient treatment to start an appropriate medication regimen and ensure he has appropriate outpatient services at discharge. - Family meeting with daughter, Keerthi, was held today 02/24 - Titrating lithium to 600mg qHS tonight. Will order lithium level to be drawn the morning of 03/01, though additional adjustments could be considered within that timeline. - Pt does request to discuss options to improve sleep and was agreeable with as needed use of melatonin. Pt was also reminded of order for hydroxyzine as well. - Pt perceives his meeting with his daughter was positive yesterday, he also states he had attempted to call his last evening and seems more amenable to working on their relationship. - Aftercare services will still need arranged 02/25 - Pt is once again more irritable and declining medications and to participate in treatment. He refused his dose of lithium 600mg last evening - will continue to recommend the medication and have it available in hopes the patient again becomes agreeable; however, he was informed it is unlikely he will be prescribed medications on discharge that he has not been taking during his admission. - Pt was offered a 72-hour notice due to his expressed frustrations; however, he declined stating "I will not be leaving AMA if that's what you're asking." - Will continue to encourage participation in group programming 02/26 - Mood continues to fluctuate greatly, patient pleasant and cooperative this morning but still has yet to maintain consistency with mood or with his commitment to medications. Pt's significant mood lability suggests he is not likely to tolerate the stress of community re-entry at this time. - Pt did take lithium 600mg last evening, and will continue at this dose as he has not demonstrated a commitment to consistent dosing of the medication. Raymore level currently ordered for the morning of 03/01, which may need adjusted depending on any continued dose refusal. - He continues to be religiously preoccupied at times, even beyond what one would expect with baseline spirituality. - Continue to encourage group participation and development of healthy and effective coping strategies. Risk Factors Assessment Male: Yes : Yes Do You Have Access To A Gun?: No Health Problems: Yes Mental Health Diagnoses: Yes Substance Use Disorders: Yes Previous Attempt: Yes Previous Psychiatric Hospitalization: Yes Hopelessness: No Smoker: No Protective Factors Assessment Restoration Beliefs: Yes : Yes Responsible for Young Children: No Employed: No Supportive Family: Yes Interval History Identifying Information GEOVANY MARIE is a 69-year-old M who currently lives in [facility]) with his , has a history of depression, and was admitted on 02/22/20 19:53 on a 201 voluntary commitment for worsening mood and suicidal ideation. Chief Complaint "Oh, good morning. How are you today?" Review of Systems Notes Constitutional: reports poor sleep last evening Cardiovascular: denied Respiratory: denied Gastrointestinal: denied Neurological: denied Psychiatric: denies symptoms other than stated above Total of at least 10 systems reviewed, pertinent positives as above and in HPI. Sleep Information Total Hours of Sleep: 5 Sleep Comments: Patient said that he sleeps "three to four 15 min naps and that is all I need". Meal Information Percent Meal Consumed - Breakfast: 100 Percent Meal Consumed - Lunch: 90 Percent Meal Consumed - Dinner: 100 Subjective Subjective Patient was seen & assessed and interval progress reviewed with treatment team. Staff report the patient continued to be angry and refuse treatment recommendations throughout most of the afternoon yesterday. Apparently he did become more cooperative toward the evening and did decide to take his HS dose of lithium last night. The patient was seen today to assess progress since admission. The patient is polite and cooperative this morning, though unclear if this is a genuine presentation. He was asked about his day yesterday, and responds "after the breakthrough, it was rather productive." Pt was asked to s hare additional details, and states "I needed some space to think about the events that occurred. I had to think, and pray, and eventually God allowed me to see that there are emotions I need to learn to control." Pt went on to state, "you see, any word that starts with the letter 'D' is from the devil, because devil also starts with 'D'. Deception, debt, even disappointment. And disappointment was what I was feeling yesterday." Pt states that ultimately he is hoping to continue to work on his communication skills, to better express when he is frustrated, but to also be able to "take a moment for some time to myself if I need to calm down." Pt admits that he is starting to develop more sympathy toward his , stating "I'm sure she has some mental issues as well, especially with dealing with all of my stuff. My alcoholism, my criminal charges, I'm sure this has all had a big impact on her." Despite these remarks, the patient still has not demonstrated an interest in involving his in treatment. During today's interaction, the patient expressed a desire to remain consistent with his medication regimen. He denied side effects with the 600mg dose of lithium he took last evening. Pt denied SI, but is admittedly concerned about getting his lithium level before he is discharged. Pt denied other needs at this time. Physical Exam Psychiatric Orientation: alert, oriented x 3 and cooperative (pleasant, though unclear if genuine ) Apperance: appropriately dressed, appropriately groomed and appeared stated age Eye Contact: good eye contact Motor Behavior: steady gait and station and no abnormal motor movements Speech: normal rate/rhythm/volume of speech Affect: euthymic affect (but rather theatrical/animated) Mood: no depressed mood ("better after the breakthrough") Thought Process: goal directed thought process Thought Content: + cognitive distortions; no hopelessness and no worthlessness Suicidal Thoughts: denies suicidal thoughts and denies suicidal intent Homicidal Thoughts: denies homicidal thoughts Hallucinations: no auditory hallucinations and no visual hallucinations Cognition: attention grossly intact and language grossly intact Estimated Intelligence: consistent with education level Insight: + impaired insight Judgement: + fair judgement Vital Signs (Past 24 Hours) Last Vital Signs Temp 36.4 C L 02/27/20 06:45 Pulse 69 02/27/20 06:45 Resp 18 02/27/20 06:45 BP 130/66 02/27/20 06:45 Pulse Ox 96 02/22/20 20:22 Results & Data (U) Current Inpatient Medications Current Inpatient Medications: Current Inpatient Medications Acetaminophen (Acetaminophen 325 Mg Tab) 650 mg PO Q4H PRN PRN Reason: Headache or Minor Fever Stop: 03/23/20 20:12 Al Hydrox/Mg Hydrox/Simethicone (Aluminum/Magnesium Susp 30 Ml Udc) 30 ml PO Q4H PRN PRN Reason: GI Upset Stop: 03/23/20 20:12 Aspirin (Aspirin 81 Mg Ectab) 81 mg PO QAM SANDEEP Stop: 03/24/20 08:59 Last Admin: 02/27/20 08:28 Dose: 81 mg Documented by: Bismuth Subsalicylate (Bismuth Subsalicylate Liqd 236 Ml) 15 ml PO PRN PRN PRN Reason: Loose Stool Stop: 03/23/20 20:12 Hydroxyzine HCl (Hydroxyzine Hcl 25 Mg Tab) 50 mg PO HSZ PRN PRN Reason: Insomnia Stop: 03/23/20 20:12 Hydroxyzine HCl (Hydroxyzine Hcl 25 Mg Tab) 25 mg PO Q4H PRN PRN Reason: Anxiety Stop: 03/23/20 20:12 Ibuprofen (Ibuprofen 600 Mg Tab) 600 mg PO Q8H PRN PRN Reason: Pain Stop: 03/24/20 09:45 Last Admin: 02/23/20 10:23 Dose: 600 mg Documented by: Raymore Carbonate (Raymore Carbonate 300 Mg Tab) 600 mg PO HS SANDEEP Stop: 03/26/20 21:59 Last Admin: 02/26/20 21:05 Dose: 600 mg Documented by: Magnesium Hydroxide (Magnesium Hydroxide Susp 30 Ml Udc) 30 ml PO DAILY PRN PRN Reason: Constipation Stop: 03/23/20 20:12 Melatonin (Melatonin 3 Mg Tab) 3 mg PO HS PRN PRN Reason: Sleep Stop: 03/26/20 09:41 Last Admin: 02/27/20 00:18 Dose: 3 mg Documented by: Preservision Areds2: Non-Formulary Patient's Own Med 1 ea PO DAILY SANDEEP Stop: 03/25/20 08:59 Last Admin: 02/27/20 08:28 Dose: 1 ea Documented by: Sodium Chloride (Sodium Chloride 0.65% Na Soln 45 Ml ([place])) 1 - 2 sprays NA PRN PRN PRN Reason: Nasal Dryness/Congestion Stop: 03/23/20 20:12 Mental Health & Subst Abuse Tx Therapist Name of Therapist: none Post Discharge Appointments Primary Care Physician Name Of Family Doctor: Elisa Díaz Primary Care Provider Appointment Comment: Kirill Grijalva Contact Information Discharge Discharge Address: [address] [place] [address]
[2020-02-27] MEDS: LITHIUM CARBONATE 300 MG TAB PO SCH (20:26)
[2020-02-28] MEDS: ASPIRIN 81 MG ECTAB PO SCH (08:16)
[2020-02-28] MEDS: PRESERVISION AREDS2 PO SCH (08:16)
--- NOTE | 2020-02-28 13:41 | Psychiatric Progress Note ---
Date of Service February 28, 2020 Impression / Recommendations Impression 69-year-old male admitted voluntarily for inpatient psychiatric treatment on 02/22/2020 after presenting to the ED with worsening mood and SI with unwillingness to clearly divulge a plan, stating it was "a secret" - then disclosing thoughts to use "a needle or a gun." The patient provides a rather convincing history of bipolar I disorder and a history of treatment with mood stabilizing agents. Pt's mood fluctuations have continued on the unit. He initially presented as very irritable and defiant, unwilling to consider medication recommendations and engage in treatment. He has had intermittent episodes of more cooperative behavior, which allowed medication options to be discussed. Although recommendation was provided for trial of lamotrigine based on patient's concern for possible medication side effects and being uninterested in regular lab work, the patient somewhat surprisingly requested to resume lithium. After the first dose, patient again became angry and defiant stating he did not feel he could be discharged, but also refusing to take medications or engage in treatment. [place] has continued to be offered to the patient, as it is felt he would benefit from a mood stabilization agent. Pt's rapid and significant mood fluctuations present concern for commitment to continued treatment or appropriate follow-up. Pt is a spiritual man at baseline, but he continues to demonstrate episodes of sabianist preoccupation as well. His behavior suggests he would not be able to tolerate the stress of community re- entry and he remains at acute risk of harm to self or others if discharged p rematurely. 02/27--reviewed. improving (1) Suicidal ideation: 02/22 -continue inpatient hospitalization, suicide checks for safety. Encourage group attendance and participation, work on healthy coping skills and discharge safety plan. -Patient is refusing to allow us to contact his for collateral information, stating he does not want her involved in treatment and does not want to go back and live with her. We will explore other supports/options for family meeting and safety planning, possibly his daughter Keerthi who brought him to the ER. 02/23 - 02/24 - Pt denies SI - Will be encouraged to work on his safety plan - Focus at this time is on appropriate medications and aftercare to promote stability of mood 02/25 - Continues to deny SI, but is now reporting unwillingness to participate in treatment - Continue to encourage participation in group programming 02/26 - Denying SI presently; however, his significant mood fluctuations and lack of clear commitment to mood stabilizing medication regimen continue to place patient at acute risk of harm to self if discharged prematurely 02/27--reviewed. (2) Bipolar 1 disorder: 02/22 -patient reports a history of manic episodes lasting 2 weeks, previous treatment with lithium and Depakote which she is refusing to resume, currently depressed with significant irritability. Reviewed treatment options, including a trial of lamotrigine or an atypical antipsychotic. He is very concerned about side effects, so reviewed lamotrigine in detail including risks, benefits, and side effects, including the need to titrate slowly following the standard protocol and the risk of Petersen-Wesley syndrome. At this time, he is not willing to start a medication, but is willing to about it, so will continue to provide information and answer questions about mood stabilizers. Advised him that medications are only 1 part of treatment, but that he may need them, given the severity of mood symptoms, in order to get out of his depression, stabilize mood, and be able to use other, nonpharmacologic methods of treatment. -Continue to provide psychoeducation about his diagnosis and the treatment recommendations. Refer for outpatient mental health services. -Education provided on the risks of cannabis use and recommendations for abstinence; patient states he has already decided to stop smoking pot due to his sabianist believes, and has not smoked in a week or so. Attempt to identify healthier coping strategies. 02/23 - After review of several mood stabilization medication options and patient's request to review with his daughter - the patient is ultimately willing to retry lithium for his bipolar disorder. Pt believes he may have been prescribed 600mg BID or TID in the past (though admittedly is uncertain about the accuracy of this report). He does recall GI upset in the past, but agreed to a less rapid titration to effective dosing. Will start at 300mg tonight and titrate as tolerated. Risks, benefits, and potential side effects were reviewed with both the patient and his daughter. Pt did verbalize understanding of need for lab monitoring to prevent toxicity. - Pt will require lithium trough to be drawn 5 days after her reaches stable dosing, lab not yet ordered - Pt did agree to consider lamotrigine if lithium was intolerable or ineffective. - He continues to deny SI, but would benefit from continued inpatient treatment to start an appropriate medication regimen and ensure he has appropriate outpatient services at discharge. - Family meeting with daughter, Keerthi, was held today 02/24 - Titrating lithium to 600mg qHS tonight. Will order lithium level to be drawn the morning of 03/01, though additional adjustments could be considered within that timeline. - Pt does request to discuss options to improve sleep and was agreeable with as needed use of melatonin. Pt was also reminded of order for hydroxyzine as well. - Pt perceives his meeting with his daughter was positive yesterday, he also states he had attempted to call his last evening and seems more amenable to working on their relationship. - Aftercare services will still need arranged 02/25 - Pt is once again more irritable and declining medications and to participate in treatment. He refused his dose of lithium 600mg last evening - will continue to recommend the medication and have it available in hopes the patient again becomes agreeable; however, he was informed it is unlikely he will be prescribed medications on discharge that he has not been taking during his admission. - Pt was offered a 72-hour notice due to his expressed frustrations; however, he declined stating "I will not be leaving AMA if that's what you're asking." - Will continue to encourage participation in group programming 02/26 - Mood continues to fluctuate greatly, patient pleasant and cooperative this morning but still has yet to maintain consistency with mood or with his commitment to medications. Pt's significant mood lability suggests he is not likely to tolerate the stress of community re-entry at this time. - Pt did take lithium 600mg last evening, and will continue at this dose as he has not demonstrated a commitment to consistent dosing of the medication. [place] level currently ordered for the morning of 03/01, which may need adjusted depending on any continued dose refusal. - He continues to be religiously preoccupied at times, even beyond what one would expect with baseline spirituality. - Continue to encourage group participation and development of healthy and effective coping strategies. 02/27--continue lithium. Denies tremor or polyuria. Risk Factors Assessment Male: Yes : Yes Do You Have Access To A Gun?: No Health Problems: Yes Mental Health Diagnoses: Yes Substance Use Disorders: Yes Previous Attempt: Yes Previous Psychiatric Hospitalization: Yes Hopelessness: No Smoker: No Protective Factors Assessment Taoism Beliefs: Yes : Yes Responsible for Young Children: No Employed: No Supportive Family: Yes Interval History Identifying Information GEOVANY MARIE is a 69-year-old M who currently lives in [facility]) with his , has a history of depression, and was admitted on 02/22/20 19:53 on a 201 voluntary commitment for worsening mood and suicidal ideation. Chief Complaint "this place is helping me so much". Review of Systems Sleep Information Total Hours of Sleep: 4.25 Sleep Comments: Patient said that he sleeps "three to four 15 min naps and that is all I need". Meal Information Percent Meal Consumed - Breakfast: 100 Percent Meal Consumed - Lunch: 100 Percent Meal Consumed - Dinner: 100 Subjective Subjective Patient was seen & assessed and interval progress reviewed with nursing and social work. No acute issues over night, more insight into how his behaviors impact family and plans to return home to upon discharge now. He was motivated to assist with his own intake at [facility]. He is taking lithium as prescribed and we reviewed renal clearance, need for follow up monitoring, etc. Physical Exam Psychiatric Orientation: alert Apperance: appropriately dressed and appropriately groomed Eye Contact: good eye contact Motor Behavior: no abnormal motor movements Speech: normal rate/rhythm/volume of speech Affect: euthymic affect Mood: no depressed mood Thought Process: linear/logical thought process Thought Content: reality based without delusions Suicidal Thoughts: denies suicidal thoughts Homicidal Thoughts: denies homicidal thoughts Hallucinations: no auditory hallucinations and no visual hallucinations Cognition: attention grossly intact Estimated Intelligence: consistent with education level Insight: + fair insight Judgement: + fair judgement Vital Signs (Past 24 Hours) Last Vital Signs Temp 36.5 C 02/28/20 06:45 Pulse 59 L 02/28/20 06:46 Resp 16 02/28/20 06:45 BP 114/76 02/28/20 06:46 Pulse Ox 96 02/22/20 20:22 Results & Data ([facility]) Current Inpatient Medications Current Inpatient Medications: Current Inpatient Medications Acetaminophen (Acetaminophen 325 Mg Tab) 650 mg PO Q4H PRN PRN Reason: Headache or Minor Fever Stop: 03/23/20 20:12 Al Hydrox/Mg Hydrox/Simethicone (Aluminum/Magnesium Susp 30 Ml Udc) 30 ml PO Q4H PRN PRN Reason: GI Upset Stop: 03/23/20 20:12 Aspirin (Aspirin 81 Mg Ectab) 81 mg PO QAM SANDEEP Stop: 03/24/20 08:59 Last Admin: 02/28/20 08:16 Dose: 81 mg Documented by: Bismuth Subsalicylate (Bismuth Subsalicylate Liqd 236 Ml) 15 ml PO PRN PRN PRN Reason: Loose Stool Stop: 03/23/20 20:12 Hydroxyzine HCl (Hydroxyzine Hcl 25 Mg Tab) 50 mg PO HSZ PRN PRN Reason: Insomnia Stop: 03/23/20 20:12 Hydroxyzine HCl (Hydroxyzine Hcl 25 Mg Tab) 25 mg PO Q4H PRN PRN Reason: Anxiety Stop: 03/23/20 20:12 Ibuprofen (Ibuprofen 600 Mg Tab) 600 mg PO Q8H PRN PRN Reason: Pain Stop: 03/24/20 09:45 Last Admin: 02/23/20 10:23 Dose: 600 mg Documented by: Buckholts Carbonate (Buck[place]ts Carbonate 300 Mg Tab) 600 mg PO HS SANDEEP Stop: 03/26/20 21:59 Last Admin: 02/27/20 20:26 Dose: 600 mg Documented by: Magnesium Hydroxide (Magnesium Hydroxide Susp 30 Ml Udc) 30 ml PO DAILY PRN PRN Reason: Constipation Stop: 03/23/20 20:12 Melatonin (Melatonin 3 Mg Tab) 3 mg PO HS PRN PRN Reason: Sleep Stop: 03/26/20 09:41 Last Admin: 02/27/20 20:26 Dose: 3 mg Documented by: Preservision Areds2: Non-Formulary Patient's Own Med 1 ea PO DAILY SANDEEP Stop: 03/25/20 08:59 Last Admin: 02/28/20 08:16 Dose: 1 ea Documented by: Sodium Chloride (Sodium Chloride 0.65% Na Soln 45 Ml ([place])) 1 - 2 sprays NA PRN PRN PRN Reason: Nasal Dryness/Congestion Stop: 03/23/20 20:12 Mental Health & Subst Abuse Tx Psychiatrist Name of Psychiatrist: Elisa Altamirano Kelly Psychiatrist's Date of Appointment with Psychiatrist: 06/14/20 Time of Appointment with Psychiatrist: 11:00 a.m. Psychiatric Appointment Comment: Telehealth - will email you directions Therapist Name of Therapist: Elisa Foss Therapist's Date of Therapist Appointment: 03/17/20 Time of Therapist Appointment: 2:15 p.m. Therapy Appointment Comment: Telehealth - will email you directions Post Discharge Appointments Primary Care Physician Name Of Family Doctor: Elisa Beltrán Primary [facility] Date of Appointment with PCP: 03/05/20 Time of Appointment with PCP: 11:45 a.m. Provider Appointment Comment: In person - [address] Contact Information Discharge Discharge Address: [address] [place] [address], [place] [id number]
[2020-02-28] MEDS: LITHIUM CARBONATE 300 MG TAB PO SCH (21:22)
[2020-02-28] MEDS: MELATONIN 3 MG TAB PO PRN (21:22)
[2020-02-29] MEDS: ASPIRIN 81 MG ECTAB PO SCH (08:56)
[2020-02-29] MEDS: PRESERVISION AREDS2 PO SCH (08:56)
--- NOTE | 2020-02-29 14:42 | Psychiatric Progress Note ---
Date of Service February 29, 2020 Impression / Recommendations Impression 69-year-old male admitted voluntarily for inpatient psychiatric treatment on 02/22/2020 after presenting to the ED with worsening mood and SI with unwillingness to clearly divulge a plan, stating it was "a secret" - then disclosing thoughts to use "a needle or a gun." The patient provides a rather convincing history of bipolar I disorder and a history of treatment with mood stabilizing agents. Pt's mood fluctuations have continued on the unit. He initially presented as very irritable and defiant, unwilling to consider medication recommendations and engage in treatment. He has had intermittent episodes of more cooperative behavior, which allowed medication options to be discussed. Although recommendation was provided for trial of lamotrigine based on patient's concern for possible medication side effects and being uninterested in regular lab work, the patient somewhat surprisingly requested to resume lithium. After the first dose, patient again became angry and defiant stating he did not feel he could be discharged, but also refusing to take medications or engage in treatment. [place] has continued to be offered to the patient, as it is felt he would benefit from a mood stabilization agent. Pt's rapid and significant mood fluctuations present concern for commitment to continued treatment or appropriate follow-up. Pt is a spiritual man at baseline, but he continues to demonstrate episodes of voodoo preoccupation as well. His behavior suggests he would not be able to tolerate the stress of community re- entry and he remains at acute risk of harm to self or others if discharged p rematurely. 02/27--reviewed. improving 02/28--ongoing improvement, Plan: lithium level in am Risk Factors Assessment Male: Yes : Yes Do You Have Access To A Gun?: No Health Problems: Yes Mental Health Diagnoses: Yes Substance Use Disorders: Yes Previous Attempt: Yes Previous Psychiatric Hospitalization: Yes Hopelessness: No Smoker: No Protective Factors Assessment Restorationist Beliefs: Yes : Yes Responsible for Young Children: No Employed: No Supportive Family: Yes Interval History Identifying Information GEOVANY MARIE is a 69-year-old M who currently lives in [facility]) with his , has a history of depression, and was admitted on 02/22/20 19:53 on a 201 voluntary commitment for worsening mood and suicidal ideation. Chief Complaint "this place is just the best". Review of Systems Sleep Information Total Hours of Sleep: 6.25 Sleep Comments: Patient said that he sleeps "three to four 15 min naps and that is all I need". Meal Information Percent Meal Consumed - Breakfast: 100 Percent Meal Consumed - Lunch: 100 Percent Meal Consumed - Dinner: 90 Subjective Subjective Patient was seen & assessed and interval progress reviewed with nursing and social work. benefitting from therapeutic work. more open re: issues with . No med side effects. Physical Exam Psychiatric Orientation: alert Apperance: appropriately groomed Eye Contact: good eye contact Motor Behavior: no abnormal motor movements Speech: normal rate/rhythm/volume of speech Affect: euthymic affect Thought Process: linear/logical thought process Thought Content: reality based without delusions Suicidal Thoughts: denies suicidal thoughts Homicidal Thoughts: denies homicidal thoughts Hallucinations: no auditory hallucinations and no visual hallucinations Vital Signs (Past 24 Hours) Last Vital Signs Temp 36.6 C 02/29/20 06:50 Pulse 84 02/29/20 06:50 Resp 16 02/29/20 06:50 BP 131/80 02/29/20 06:50 Pulse Ox 96 02/22/20 20:22 Results & Data ([facility]) Current Inpatient Medications Current Inpatient Medications: Current Inpatient Medications Acetaminophen (Acetaminophen 325 Mg Tab) 650 mg PO Q4H PRN PRN Reason: Headache or Minor Fever Stop: 03/23/20 20:12 Al Hydrox/Mg Hydrox/Simethicone (Aluminum/Magnesium Susp 30 Ml Udc) 30 ml PO Q4H PRN PRN Reason: GI Upset Stop: 03/23/20 20:12 Aspirin (Aspirin 81 Mg Ectab) 81 mg PO QAM SANDEEP Stop: 03/24/20 08:59 Last Admin: 02/29/20 08:56 Dose: 81 mg Documented by: Bismuth Subsalicylate (Bismuth Subsalicylate Liqd 236 Ml) 15 ml PO PRN PRN PRN Reason: Loose Stool Stop: 03/23/20 20:12 Hydroxyzine HCl (Hydroxyzine Hcl 25 Mg Tab) 50 mg PO HSZ PRN PRN Reason: Insomnia Stop: 03/23/20 20:12 Hydroxyzine HCl (Hydroxyzine Hcl 25 Mg Tab) 25 mg PO Q4H PRN PRN Reason: Anxiety Stop: 03/23/20 20:12 Ibuprofen (Ibuprofen 600 Mg Tab) 600 mg PO Q8H PRN PRN Reason: Pain Stop: 03/24/20 09:45 Last Admin: 02/23/20 10:23 Dose: 600 mg Documented by: [place] Carbonate ([place] Carbonate 300 Mg Tab) 600 mg PO HS SANDEEP Stop: 03/26/20 21:59 Last Admin: 02/28/20 21:22 Dose: 600 mg Documented by: Magnesium Hydroxide (Magnesium Hydroxide Susp 30 Ml Udc) 30 ml PO DAILY PRN PRN Reason: Constipation Stop: 03/23/20 20:12 Melatonin (Melatonin 3 Mg Tab) 3 mg PO HS PRN PRN Reason: Sleep Stop: 03/26/20 09:41 Last Admin: 02/28/20 21:22 Dose: 3 mg Documented by: Preservision Areds2: Non-Formulary Patient's Own Med 1 ea PO DAILY SANDEEP Stop: 03/25/20 08:59 Last Admin: 02/29/20 08:56 Dose: 1 ea Documented by: Sodium Chloride (Sodium Chloride 0.65% Na Soln 45 Ml ([place])) 1 - 2 sprays NA PRN PRN PRN Reason: Nasal Dryness/Congestion Stop: 03/23/20 20:12 Mental Health & Subst Abuse Tx Psychiatrist Name of Psychiatrist: Elisa Kelly Psychiatrist's Date of Appointment with Psychiatrist: 06/14/20 Time of Appointment with Psychiatrist: 11:00 a.m. Psychiatric Appointment Comment: Telehealth - will email you directions Therapist Name of Therapist: Elisa Foss Therapist's Date of Therapist Appointment: 03/17/20 Time of Therapist Appointment: 2:15 p.m. Therapy Appointment Comment: Telehealth - will email you directions Post Discharge Appointments Primary Care Physician Name Of Family Doctor: Elisa Beltrán Primary Care Date of Appointment with PCP: 03/05/20 Time of Appointment with PCP: 11:45 a.m. Provider Appointment Comment: In person - [address] Contact Information Discharge Discharge Address: [address] [place] [address] [place] [id number]
[2020-02-29] MEDS: LITHIUM CARBONATE 300 MG TAB PO SCH (21:04)
[2020-02-29] MEDS: MELATONIN 3 MG TAB PO PRN (21:05)
[2020-03-01] MEDS: ASPIRIN 81 MG ECTAB PO SCH (08:48)
[2020-03-01] MEDS: PRESERVISION AREDS2 PO SCH (08:49)
--- NOTE | 2020-03-01 09:24 | Discharge Summary ---
Date of Service March 01, 2020 History of Present Illness per admitting clinician: Patient presented to the ER yesterday with his daughter for depression and SI. He reported a 40-year history of mental health problems, said he was previously diagnosed with bipolar disorder, but not currently in treatment. Mood has been worsening for the past few weeks according to his daughter, with low mood, anxiety, suicidal thoughts, poor energy and motivation. Daughter also noted increased irritability and not getting along with his , and he was noted to be irritable in the emergency room. The patient stated he has not gotten along with his for decades, and blamed her for all of his problems. He reported suicidal thoughts, but initially refused to disclose his plan, stating it was "a secret." He later told the technology recruiter that he plan to use "a needle or a gun" to end his life. He said he does not take any medications or have outpatient treatment, and said that [facility] is his therapist and psychiatrist. He had contacted [facility], wanting to be hospitalized there as he was hospitalized there 25 years ago, and came to the ER for medical clearance. [facility], so he was referred here. Admission labs notable for low RBC, hemoglobin, and hematocrit, BUN 22, normal TSH, UA with trace protein and ketones and 10-20 epithelial cells, UDS + cannabis, negative COVID-19 test. EKG was normal sinus rhythm with a QTC of 442, chest x-ray showed no active disease, and head CT showed minor white matter hypodensities likely on a small vessel basis. He signed in voluntarily for treatment, but has been irritable since coming to the unit. He met with the bilingual social worker this morning, and adamantly refused to sign releases for his or involve her in treatment in any way, stating he would rather live in his car then go back to live with her. He reported extensive criminal history, stating he had been arrested for masturbating in public while looking at young women, and blamed this on his . On my assessment, he states he came in at the urging of his daughter, but is not really sure he wants to be here or wants treatment. He says that yesterday, he did not feel like going to denominational, so his went without him, "and I just broke down in tears." His daughter Aggie then came over and "saw me in such a state," so called his other daughter Keerthi who is an [employer], and she "suggested that I get help." He says he did not want to be hospitalized, and cannot explain why he then signed in voluntarily. He states his mood has been "pissed off" for the last 4 years, which he blames on "being in a toxic environment," as his "never says anything, her biggest fucking problem is her mouth, I've told her that!" He states they bicker frequently, "back each other, mouth off at each other." He says it is a "toxic environment," and he felt he needed to get out. He reports chronically impaired sleep, stating he has not slept through the night in many years, due to to having to get up to go to the bathroom every 90 minutes. He had significant weight loss when treated for cancer 2 years ago, and only gained back the weight, and would like to gain another 10-15 pounds. He does feel he has been depressed recently, and also reports a history of manic episodes which consist of elevated mood, decreased need for sleep, restlessness and increased activity (repeatedly driving to [place] to visit family, feels he cannot relax or stop doing things), and "smoke marijuana excessively to make me feel higher." These episodes last about 2 weeks, and he has had several of them in the past year, most recently in November. He says he was diagnosed with "manic depressive disorder," but has not been in treatment for 18-19 years. He is unsure what he would like to accomplish while here, noting he does not really want to take medication as he does not want to have side effects or "be a guinea pig." He is uncertain whether he is willing to involve his daughter in treatment, but is adamantly refusing to allow us to speak with his . He states his belief in God is helpful and that he previously quit psychiatric treatment because "the only pills I need is the [id number]." He states that God cured him from his cancer and he hopes will cure him from this. Physical Exam Mental Examination See admission H&P and DOD summary. Vital Signs (Past 24 Hours) Last Vital Signs Temp 36.6 C 03/01/20 06:54 Pulse 74 03/01/20 06:54 Resp 16 03/01/20 06:54 BP 159/79 H 03/01/20 06:54 Pulse Ox 96 02/22/20 20:22 Principal Diagnosis bipolar disorder Psychiatric Data See daily stay summary. In short, safety was maintained and the patient was cooperative with care. Medication changes included retrial of lithium and they tolerated this well. A family session was held and safety plan was completed prior to discharge and the patient showed increased insight into his condition and impact on his . He remained rather jain in conversation but not expansive and was an active participant in group therapy. Day of Discharge Assessment Today the patient voices readiness for discharge. They note improvement in mood and deny thoughts to harm self or others. Thoughts remain organized and they are improved from admission. There is no evidence of psychosis. They agree to take mediations as prescribed and keep follow-up appointments. They are stable for discharge to outpatient level of care. With regards to lithium, significant med teaching was done re: need for f/u levels and thyroid monitoring with renal function tests. Reviewed these are typically done within 5 days of a dose increased, within 3 months of starting and if stable, q 6 months. Reviewed to hold lithium if develops GI illness that could cause dehydration given risk of toxicity and also NSAIDs can elevated lithium levels so Tylenol is preferred OTC option for pain control. Kinloch can be toxic in OD. He is aware that appointment for [facility] is several months away and is seeking additional support from [facility] providetne, otherwise he indicates will see PCP for refill/monitoring. Kinloch level on day of discharge was 0.5. This is just below 0.6-1.2 therapeutic window and I feel preferred for now given age and current improvement. If has breakthrough symptoms would add 150 mg lithium in am and repeat level. Transition of Care Transition Of Care Record: was reviewed with the patient Advance Directives Advance Directives Information Provided: Yes Advance Directives: Yes Mental Health Advance Directive: No Advance Directives on File: No Living Will: No Power of Pulp Cooker: No Advance Directives Reason:: Declines as Mental Health Visit. Risk Factors Assessment Male: Yes : Yes Do You Have Access To A Gun?: No Health Problems: Yes Mental Health Diagnoses: Yes Substance Use Disorders: Yes Previous Attempt: Yes Previous Psychiatric Hospitalization: Yes Hopelessness: No Smoker: No Protective Factors Assessment Evangelical Beliefs: Yes : Yes Responsible for Young Children: No Employed: No Supportive Family: Yes Tobacco Cessation at Discharge Tobacco Cessation Medication Prescribed at Discharge: Not Applicable/Non-Smoker Total Time Total Time Spent: Greater Than 30 Minutes Total Time Includes: Examination of the patient, Discharge Planning and Medication Reconciliation Discharge Data Lab Results 02/22/20 02/22/20 02/22/20 15:31 15:31 15:31 WBC 6.16 RBC 3.65 L Hgb 12.0 L Hct 36.4 L MCV 99.7 MCH 32.9 MCHC 33.0 RDW Std Deviation 49.6 H RDW Coeff of Debbie 13.8 Plt Count 247 MPV 9.1 Immature Gran % (Auto) 0.2 Neut % (Auto) 85.4 Lymph % (Auto) 11.2 [place] % (Auto) 1.9 Eos % (Auto) 1.0 Baso % (Auto) 0.3 Neut # (Auto) 5.26 Lymph # (Auto) 0.69 L [place] # (Auto) 0.12 Eos # (Auto) 0.06 Baso # (Auto) 0.02 Immature Gran # (Auto) 0.01 Sodium 138 Potassium 4.2 Chloride 104 Carbon Dioxide 27 Anion Gap 8.0 BUN 22 H Creatinine 1.22 Est Cr Clr Drug Dosing 48.9 Est GFR ( Amer) 68.7 Est GFR (Non-Af Amer) 59.3 BUN/Creatinine Ratio 18.4 Glucose 88 Calcium 9.7 Total Bilirubin 0.5 AST 21 ALT 18 Alkaline Phosphatase 60 Total Protein 7.6 Albumin 4.1 Globulin 3.5 Albumin/Globulin Ratio 1.2 TSH 4.220 Urine Color Urine Appearance Urine pH Ur Specific [place] Urine Protein Urine Glucose (UA) Urine Ketones Urine Blood Urine Nitrite Urine Bilirubin Urine Urobilinogen Ur Leukocyte Esterase Urine WBC (Auto) Urine RBC (Auto) U Hyaline Cast (Auto) U Epithel Cells (Auto) Urine Bacteria (Auto) Salicylates < 1.7 L Urine Opiates Screen Ur Methadone, Qual Acetaminophen < 2 L Urine Barbiturates Ur Phencyclidine (PCP) U Amphetamin/Meth Scrn MDMA (Ecstasy) Screen U Benzodiazepines Scrn Kin[place] Ur Cocaine Metabolite U Marijuana (THC) Screen U Marijuana THC Carboxy Drug Screen Comment Ethyl Alcohol mg/dL COVID-19 Eval Order SARS-CoV-2, RNA, NAAT 02/22/20 02/22/20 02/22/20 15:31 15:40 15:40 WBC RBC Hgb Hct MCV MCH MCHC RDW Std Deviation RDW Coeff of Debbie Plt Count MPV Immature Gran % (Auto) Neut % (Auto) Lymph % (Auto) [place] % (Auto) Eos % (Auto) Baso % (Auto) Neut # (Auto) Lymph # (Auto) [place] # (Auto) Eos # (Auto) Baso # (Auto) Immature Gran # (Auto) Sodium Potassium Chloride Carbon Dioxide Anion Gap BUN Creatinine Est Cr Clr Drug Dosing Est GFR ( Amer) Est GFR (Non-Af Amer) BUN/Creatinine Ratio Glucose Calcium Total Bilirubin AST ALT Alkaline Phosphatase Total Protein Albumin Globulin Albumin/Globulin Ratio TSH Urine Color Urine Appearance Urine pH Ur Specific [place] Urine Protein Urine Glucose (UA) Urine Ketones Urine Blood Urine Nitrite Urine Bilirubin Urine Urobilinogen Ur Leukocyte Esterase Urine WBC (Auto) Urine RBC (Auto) U Hyaline Cast (Auto) U Epithel Cells (Auto) Urine Bacteria (Auto) Salicylates Urine Opiates Screen Ur Methadone, Qual Acetaminophen Urine Barbiturates Ur Phencyclidine (PCP) U Amphetamin/Meth Scrn MDMA (Ecstasy) Screen U Benzodiazepines Scrn [place] Ur Cocaine Metabolite U Marijuana (THC) Screen U Marijuana THC Carboxy Drug Screen Comment Ethyl Alcohol mg/dL < 3.0 COVID-19 Eval [facility] SARS-CoV-2, RNA, NAAT NEGATIVE 02/22/20 02/22/20 02/22/20 15:50 15:50 15:50 WBC RBC Hgb Hct MCV MCH MCHC RDW Std Deviation RDW Coeff of Debbie Plt Count MPV Immature Gran % (Auto) Neut % (Auto) Lymph % (Auto) [place] % (Auto) Eos % (Auto) Baso % (Auto) Neut # (Auto) Lymph # (Auto) [place] # (Auto) Eos # (Auto) Baso # (Auto) Immature Gran # (Auto) Sodium Potassium Chloride Carbon Dioxide Anion Gap BUN Creatinine Est Cr Clr Drug Dosing Est GFR ( Amer) Est GFR (Non-Af Amer) BUN/Creatinine Ratio Glucose Calcium Total Bilirubin AST ALT Alkaline Phosphatase Total Protein Albumin Globulin Albumin/Globulin Ratio TSH Urine Color Yellow Urine Appearance Clear Urine pH 5.0 Ur Specific [place] 1.020 Urine Protein Trace H Urine Glucose (UA) Negative Urine Ketones Trace H Urine Blood Negative Urine Nitrite Negative Urine Bilirubin Negative Urine Urobilinogen Negative Ur Leukocyte Esterase Negative Urine WBC (Auto) 1-5 Urine RBC (Auto) 0-4 U Hyaline Cast (Auto) 1-5 U Epithel Cells (Auto) 10-20 H Urine Bacteria (Auto) Negative Salicylates Urine Opiates Screen Neg Ur Methadone, Qual Neg Acetaminophen Urine Barbiturates Neg Ur Phencyclidine (PCP) Neg U Amphetamin/Meth Scrn Neg MDMA (Ecstasy) Screen Neg U Benzodiazepines Scrn Neg [place] Ur Cocaine Metabolite Neg U Marijuana (THC) Screen Pos H U Marijuana THC Carboxy 114 H Drug Screen Comment SEE NOTE Ethyl Alcohol mg/dL COVID-19 Eval Order SARS-CoV-2, RNA, NAAT 03/01/20 07:47 WBC RBC Hgb Hct MCV MCH MCHC RDW Std Deviation RDW Coeff of Debbie Plt Count MPV Immature Gran % (Auto) Neut % (Auto) Lymph % (Auto) [place] % (Auto) Eos % (Auto) Baso % (Auto) Neut # (Auto) Lymph # (Auto) [place] # (Auto) Eos # (Auto) Baso # (Auto) Immature Gran # (Auto) Sodium Potassium Chloride Carbon Dioxide Anion Gap BUN Creatinine Est Cr Clr Drug Dosing Est GFR ( Amer) Est GFR (Non-Af Amer) BUN/Creatinine Ratio Glucose Calcium Total Bilirubin AST ALT Alkaline Phosphatase Total Protein Albumin Globulin Albumin/Globulin Ratio TSH Urine Color Urine Appearance Urine pH Ur Specific [place] Urine Protein Urine Glucose (UA) Urine Ketones Urine Blood Urine Nitrite Urine Bilirubin Urine Urobilinogen Ur Leukocyte Esterase Urine WBC (Auto) Urine RBC (Auto) U Hyaline Cast (Auto) U Epithel Cells (Auto) Urine Bacteria (Auto) Salicylates Urine Opiates Screen Ur Methadone, Qual Acetaminophen Urine Barbiturates Ur Phencyclidine (PCP) U Amphetamin/Meth Scrn MDMA (Ecstasy) Screen U Benzodiazepines Scrn [place] 0.5 L Ur Cocaine Metabolite U Marijuana (THC) Screen U Marijuana THC Carboxy Drug Screen Comment Ethyl Alcohol mg/dL COVID-19 Eval Order SARS-CoV-2, RNA, NAAT Hospital Course (1) Suicidal ideation: 02/22 -continue inpatient hospitalization, suicide checks for safety. Encourage group attendance and participation, work on healthy coping skills and discharge safety plan. -Patient is refusing to allow us to contact his for collateral information, stating he does not want her involved in treatment and does not want to go back and live with her. We will explore other supports/options for family meeting and safety planning, possibly his daughter Keerthi who brought him to the ER. 02/23 - 02/24 - Pt denies SI - Will be encouraged to work on his safety plan - Focus at this time is on appropriate medications and aftercare to promote stability of mood 02/25 - Continues to deny SI, but is now reporting unwillingness to participate in treatment - Continue to encourage participation in group programming 02/26 - Denying SI presently; however, his significant mood fluctuations and lack of clear commitment to mood stabilizing medication regimen continue to place patient at acute risk of harm to self if discharged prematurely 02/27--reviewed. (2) Bipolar 1 disorder: 02/22 -patient reports a history of manic episodes lasting 2 weeks, previous treatment with lithium and Depakote which she is refusing to resume, currently depressed with significant irritability. Reviewed treatment options, including a trial of lamotrigine or an atypical antipsychotic. He is very concerned about side effects, so reviewed lamotrigine in detail including risks, benefits, and side effects, including the need to titrate slowly following the standard protocol and the risk of Petersen-Wesley syndrome. At this time, he is not willing to start a medication, but is willing to about it, so will continue to provide information and answer questions about mood stabilizers. Advised him that medications are only 1 part of treatment, but that he may need them, given the severity of mood symptoms, in order to get out of his depression, stabilize mood, and be able to use other, nonpharmacologic methods of treatment. -Continue to provide psychoeducation about his diagnosis and the treatment recommendations. Refer for outpatient mental health services. -Education provided on the risks of cannabis use and recommendations for absti nence; patient states he has already decided to stop smoking pot due to his jain believes, and has not smoked in a week or so. Attempt to identify healthier coping strategies. 02/23 - After review of several mood stabilization medication options and patient's request to review with his daughter - the patient is ultimately willing to retry lithium for his bipolar disorder. Pt believes he may have been prescribed 600mg BID or TID in the past (though admittedly is uncertain about the accuracy of this report). He does recall GI upset in the past, but agreed to a less rapid titration to effective dosing. Will start at 300mg tonight and titrate as tolerated. Risks, benefits, and potential side effects were reviewed with both the patient and his daughter. Pt did verbalize understanding of need for lab monitoring to prevent toxicity. - Pt will require lithium trough to be drawn 5 days after her reaches stable dosing, lab not yet ordered - Pt did agree to consider lamotrigine if lithium was intolerable or ineffective. - He continues to deny SI, but would benefit from continued inpatient treatment to start an appropriate medication regimen and ensure he has appropriate outpatient services at discharge. - Family meeting with daughter, Keerthi, was held today 02/24 - Titrating lithium to 600mg qHS tonight. Will order lithium level to be drawn the morning of 03/01, though additional adjustments could be considered within that timeline. - Pt does request to discuss options to improve sleep and was agreeable with as needed use of melatonin. Pt was also reminded of order for hydroxyzine as well. - Pt perceives his meeting with his daughter was positive yesterday, he also states he had attempted to call his last evening and seems more amenable to working on their relationship. - Aftercare services will still need arranged 02/25 - Pt is once again more irritable and declining medications and to participate in treatment. He refused his dose of lithium 600mg last evening - will continue to recommend the medication and have it available in hopes the patient again becomes agreeable; however, he was informed it is unlikely he will be prescribed medications on discharge that he has not been taking during his admission. - Pt was offered a 72-hour notice due to his expressed frustrations; however, he declined stating "I will not be leaving AMA if that's what you're asking." - Will continue to encourage participation in group programming 02/26 - Mood continues to fluctuate greatly, patient pleasant and cooperative this morning but still has yet to maintain consistency with mood or with his commitment to medications. Pt's significant mood lability suggests he is not likely to tolerate the stress of community re-entry at this time. - Pt did take lithium 600mg last evening, and will continue at this dose as he has not demonstrated a commitment to consistent dosing of the medication. [place]loch level currently ordered for the morning of 03/01, which may need adjusted depending on any continued dose refusal. - He continues to be religiously preoccupied at times, even beyond what one would expect with baseline spirituality. - Continue to encourage group participation and development of healthy and effective coping strategies. 02/27--continue lithium. Denies tremor or polyuria. Mental Health & Subst Abuse Tx Psychiatrist Name of Psychiatrist: Elisa Nieves [facility] Psychiatrist's Date of Appointment with Psychiatrist: 06/14/20 Time of Appointment with Psychiatrist: 11:00 a.m. Psychiatric Appointment Comment: Telehealth - will email you directions Therapist Name of Therapist: Elisa Foss Therapist's Date of Therapist Appointment: 03/17/20 Time of Therapist Appointment: 2:15 p.m. Therapy Appointment Comment: Telehealth - will email you directions Post Discharge Appointments Primary Care Physician Name Of Family Doctor: Elisa Beltrán [facility] Date of Appointment with PCP: 03/05/20 Time of Appointment with PCP: 11:45 a.m. Provider Appointment Comment: In person - Kirill Grijalva Smoking Cessation Counseling Tobacco Cessation Medication Prescribed at Discharge: Not Applicable/Non-Smoker Other #1: Name of Aftercare Appointment: Sonal Matthews - Outpatient Therapy Phone Number of Aftercare Appointment: [phone] Date of Aftercare Appointment: 03/09/20 Time of Aftercare Appointment: 14:00 Aftercare Appointment Comment: [facility] Contact Information Discharge Discharge Address: [address] [place] [address] Discharge Plan Discharge Items Patient Disposition: Home - Self-Care Reason For Visit: DEPRESSION NOS Discharge Diagnosis: bipolar disorder Activity: Resume your previous activity Non-emergency contact: Primary Care Provider, Psychiatrist and Therapist Call non-emergency contact if: you have any medication questions and your symptoms worsen Follow-up/Referrals: PCP,NO [Primary Care Provider] - Diet: Regular Addtl Attending Provider Instructions: SPECIAL CARE INSTRUCTIONS: 1. Follow through with your scheduled aftercare appointments. If unable to keep an appointment, please call to reschedule. 2. Take your medication only as prescribed. Medication should not be changed or stopped without the approval of your doctor. In the event of worsening symptoms or concerns about side effects, contact your doctor immediately. 3. Utilize new healthy coping skills, anger management skills, and stress management skills learned during your hospitalization. Journal feelings and process them with a support person. Identify stressors or situations that may result in relapse, deterioration or inappropriate behaviors and develop a plan to deal with those issues. 4. If your coping skills are ineffective and you are in crisis, contact your outpatient providers for direction. If unable to reach your providers, please call the [facility] CRISIS LINE AT , go to the [facility] walk-in center at [address], [place], or go to the closest Emergency Room. 5. Avoid alcohol and un-prescribed drugs. 6. You have been provided with the Mental Health Advance Directives Pamphlet for your review. AFTERCARE APPOINTMENTS: * Please call your insurance company prior to your scheduled appointment to confirm your aftercare providers are covered. Take your insurance information to your appointments. WHO TO CALL AND WHEN: Medical Emergencies: For questions or emergencies related to your hospital stay, please contact the Inpatient Behavioral Health Unit at [phone]. A rad tech is on-call 04/09 for the Behavioral Health Unit for emergencies At any time you feel your situation is an emergency, you may also call 911 immediately. Pending Studies at Discharge: No Stand-Alone Forms: [facility], Smoking Cessation Medications and DC Order Prescriptions: New acetaminophen 325 mg Tablet 650 mg PO Q4H PRN (Reason: Pain) Qty: 1 RF: 0 melatonin 3 mg Tablet 3 mg PO HS PRN (Reason: Sleep) Qty: 1 RF: 0 lithium carbonate 300 mg Tablet 600 mg PO HS 30 Days Qty: 60 RF: 0 Continued aspirin 81 mg Tablet 81 mg PO DAILY RF: 0 PreserVision AREDS [id number] Tablet 1 tab PO DAILY RF: 0 Discontinued clindamycin HCl 300 mg Capsule 300 mg PO Q6H RF: 0 Discharge Orders: Discharge Order (Routine); Ordered 03/01/20 Ordered By: Mickie Alegria Admission Data Admit Date/Time: 02/22/20 19:53 Attending Provider: Tabby Chase Admit Provider: Tabby Chase Primary Care Provider: PCP,NO Other Interventions: Discharge Summary Assessment (RN) Last Done: 03/01/20 09:40 PSY Interdisciplinary Discharge Planning Last Done: 02/28/20 03:10 Coding Level of Care Code 82146 D/C day mgmt > 30 min Diagnoses Suicidal ideation R45.851 Bipolar 1 disorder F31.9
== END 2020-03-01 14:47 | disposition home or self-care (01) | DRG 885 ==
LOC: ED 14:30 → 3S 19:53